=== PATIENT | male | born 1975 | race Caucasian/White ===

== ENCOUNTER 2017-09-04 18:06 | Inpatient (IN) | payer SELFPAY ==
[2017-09-04] VITALS (8 sets, daily range): BP systolic 139–171; BP diastolic 91–108; PULSE 74–140; RESP 16–20; TEMP 36.7–37.2; O2SAT 16–99; BMI 28.2; BMI 27.4
--- NOTE | 2017-09-04 18:27 | EKG12_ITS ---
Test Reason : CP Blood Pressure : / mmHG Vent. Rate : 105 BPM Atrial Rate : 105 BPM P-R Int : 120 ms QRS Dur : 082 ms QT Int : 314 ms P-R-T Axes : 066 036 040 degrees QTc Int : 415 ms Sinus tachycardia Otherwise normal ECG Confirmed by EMERITA NESS, LILIAN ([id number]), web content editor CINDY FERRIS ([id number]) on 09/06/2017 2:22:11 PM Referred By: KD Confirmed By:LILIAN FELDER MD
--- NOTE | 2017-09-04 18:30 | RAD_ITS ---
STUDY: X-RAY CHEST REASON FOR EXAM: Male, 41 years old. Chest pain. TECHNIQUE: Single AP portable upright view of the chest. COMPARISON: Portable AP erect chest x-ray January 11, 2013. FINDINGS: The endotracheal nasogastric tube seen on prior study have since been removed. Curvilinear density in the right base consistent with minor subsegmental atelectasis or scarring. The lungs are otherwise clear and expanded. There is no demonstrated pleural abnormality. Normal size heart. Normal mediastinum and brigido. Normal visualized pulmonary arteries. Normal visualized aortic arch and descending thoracic aorta. Normal visualized thoracic spine. Normal visualized ribs, clavicles, and shoulders. There is no demonstrated abnormality of the visualized soft tissue structures of the upper abdomen. RAD/Chest 1 View (Portable) IMPRESSION: Minor curvilinear scarring in the right base. No acute cardiopulmonary disease. Electronically Signed: Dimitry Moore MD at 18:56 EST , Service support ,
--- NOTE | 2017-09-04 18:31 | ED.DCSUM_ITS ---
- ER Visit Summary Date of Service: 09/04/17 Chief Complaint: Chest pain History of Present Illness: The patient is a 41 M presenting with chest pain which started at 3 PM. Patient states this started while having sexual intercourse. He complains of midsternal chest pain radiating to his left arm. It is associated with shortness of breath, diaphoresis, lightheadedness. He states the pain persisted over the next several hours. He has a family history of early heart disease and smoking. He denies PE/DVT risk factors. Physical Examination: Vitals are stable. Patient is afebrile. Alert no acute distress. HEENT exam is unremarkable. Neck is supple. Lungs are clear and equal bilaterally. Heart is regular and tachycardic Abdomen is soft nontender nondistended. Extremities are unremarkable. Skin is warm and dry. No focal neurologic deficit. Remainder of exam is unremarkable. Emergency Department Course and Treatment: He was given aspirin on arrival. EKG is sinus tachycardia rate of 105. Chest x-ray shows no acute process. CBC chemistries unremarkable. Troponin is elevated at 1.74. Pain-free on reevaluation. Discussed with Dr. Ricketts. He is given Lovenox and Plavix. Discussed with the hospitalist for admission. Disposition: Admission Impression: NSTEMI This note was generated with [employer] dictation software. It may contain incorrect words, spelling, and punctuation that were not noted in review of the chart prior to signing ED Disposition - Plan for ED Patient: Chief Complaint: Chest Pain
[2017-09-04 18:36] LABS: Absolute Lymphocyte Count 3.14 X10^3/ul (0.83-4.51); Basophil# 0.01 X10^3/uL; Basophil% 0.1 % (0-1); Eosinophil# 0.01 X10^3/uL; Eosinophils% 0.1 % (0-5); Hematocrit 46.8 % (40-54); Hemoglobin 15.9 g/dl (13.0-16.5); Lymphocyte # 3.14 X10^3/ul (4.0); Lymphocyte % 31.9 % (19-41); Mean Corpuscular Hgb 29.1 pg (27.0-32.0); Mean Corpuscular Volume 85.7 fL (80-94); Monocyte# 0.63 X10^3/uL; Monocyte% 6.4 % (0-10); Neutrophil # 6.02 X10^3/uL (2.7-7.7); Neutrophil % 61.2 % (47-70); Platelet Count 232 K/mm3 (150-450); RBC Distribution Width CV 13.9 % (11.6-14.6); Red Blood Count 5.46 M/mm3 (4.6-6.2); White Blood Count 9.8 K/mm3 (4.4-11.0)
[2017-09-04 18:39] LABS: POSITIVE COUNT NO; POSITIVE DIFFERENTIAL NO; POSITIVE MORPHOLOGY NO
[2017-09-04] MEDS: Aspirin 81 MG TAB.CHEW 324 MG PO (18:39)
[2017-09-04 18:53] LABS: Anion Gap 8 (5-15); BUN 10 mg/dL (7-18); BUN/Creat Ratio 9.2 RATIO (10-20); Calcium,Total 10.3 mg/dL (8.5-10.1); Chloride 100 mmol/L (98-107); Creatinine, Serum 1.09 mg/dL (0.70-1.30); EST Glomerular Filtration Rate 79 mL/min (>60); Est Glom Filt Rate - Afr Amer 96 mL/min (>60); Estimated Creatinine Clearance 87.16 ml/min; Glucose 91 mg/dL (74-106); Potassium 3.9 mmol/L (3.5-5.1); Sodium Level 137 mmol/L (136-145)
--- NOTE | 2017-09-04 19:23 | PCM.HP.STD ---
Problem List (1) Non-ST elevation MO (NSTEMI) Status: Acute (2) Hypotension Status: Chronic History of Present Illness Date of Admission: 09/04/17 Chief Complaint: chest pain The patient is a 41 year old M presents w chest pain. Post-coital where chest pain was left sided and radiated down left arm. He felt it was reflux and took some Tums w/o relief. [place] very tired as well. Never had pain like this before. Pain was pressure-like. Came to ER and was found to have a NSTEMI w troponins 1.74. Cardiology contacted and told to give patient ASA, plavix load and lovenox. Currently, pt is CP free. Pt does smoke anywhere from 2-10 cigs per day. Supposedly, he was advised to so by his physician for hypotension and dizziness as other medications did not help. Pt is hypertensive in ED w SBP in 150s and 160s. [] Past Medical History Past Medical History (Chronic Problems): Chronic Problems Hypotension (Chronic) Allergies No Known Allergies Allergy (Verified 09/04/17 18:08) Surgical History: noncontributory Smoking Status: Current every day smoker - *Family History Maternal History Items: Heart Disease Paternal History Items: Heart Disease Review of Systems Constitutional: Denies: Chills, Fever, Weight Change Eyes: Denies: Blurred vision, Double vision HEENT: Denies: Head Aches, Sinus Congestion, Sinus Drainage Cardiovascular: Reports: Chest Pain. Denies: Palpitations Respiratory: Denies: Cough, Shortness of breath at rest, Sputum production Gastrointestinal: Denies: Abdominal Pain, Nausea, Vomiting Genitourinary: Denies: Dysuria Musculoskeletal: Reports: Arm Pain. Denies: Joint Pain, Joint Tenderness Skin: Denies: Rash, Wounds Neurological: Denies: Numbness, Tingling, Focal weakness Psychiatric: Denies: Anxiety, Depression, Homicidal Ideations, Suicidal Ideations Hematologic/ Lymphatic: Denies: Easy Bruising, Easy Bleeding, Hx of blood clot VTE Information - Inpt Only VTE Present on Admission: No Patient Problems: Active and Suspected Problems Non-ST elevation MO (NSTEMI) (Acute) - Physical Exam General: Alert, Cooperative, No apparent distress HEENT: Atraumatic, Normocephalic Neck: No Nodes, Thyroid Normal Size and Texture Lungs: Clear to auscultation, Normal air movement, No rhonchi, No wheeze Cardiovascular: Regular rate, Regular Rhythm, Normal S1, Normal S2, No murmurs Abdomen: Bowel Sounds Present, Soft, Non Tender, Non-Distended, No Hepato-splenomegaly Extremities: No edema, Capillary Refill Less than 3 Seconds, No Calf Tenderness Skin: No rashes, No breakdown Musculoskeletal: No Tenderness to Palpation of Joints or Extremities Lymphatic: No Cervical, Supraclavicular, or Inguinal Adenopathy Neurological: Deep Tendon Reflexes 2+/4 and Symmetrical, Neuro grossly intact Psych/Mental Status: Normal Affect, Appropriate Vital Signs Temp Pulse Resp BP Pulse Ox 36.9 C 106 H 16 165/98 H 99 09/04/17 18:07 09/04/17 18:07 09/04/17 18:07 09/04/17 18:07 09/04/17 18:07 Oxygen Flow Rate 2 Oxygen Delivery Method Nasal Cannula Weight: 84.2 kg Body Mass Index (BMI) 28.2 Laboratory Tests Past 24 Hrs 09/04/17 09/04/17 18:10 18:10 WBC 9.8 RBC 5.46 Hgb 15.9 Hct 46.8 MCV 85.7 MCH 29.1 MCHC 34.0 RDW 13.9 RDW Differential 43.0 Plt Count 232 MPV 9.0 Immature Gran % (Auto) 0.300 Neut % (Auto) 61.2 Lymph % (Auto) 31.9 [place] % (Auto) 6.4 Eos % (Auto) 0.1 Baso % (Auto) 0.1 Absolute Neuts (auto) 6.0 Absolute Lymphs (auto) 3.14 Total Counted Not Reportable Sodium 137 Potassium 3.9 Chloride 100 Carbon Dioxide 29.0 Anion Gap 8 BUN 10 Creatinine 1.09 Estim Creat Clear Calc 87.16 Est GFR (MDRD) Af Amer 96 Est GFR (MDRD) Non-Af 79 BUN/Creatinine Ratio 9.2 L Glucose 91 Calcium 10.3 H Troponin I 1.74 H* Assessment/Plan Active and Suspected Problems Non-ST elevation MO (NSTEMI) (Acute) 1. NSTEMI smoking + family history advised to quit smoking ASA, plavix, lovenox Cards cs. Anticipated LHC 09/05/17 2. hypotension, chronic hypertensive here will require further w/u as outpt 3. DVT proph: pt anticoagulated. Code Visit Inpatient E&M: 32683 Init Hosp L3
[2017-09-04] MEDS: Enoxaparin 100 MG/ML Syringe 80 MG SC (19:26)
[2017-09-04] MEDS: Clopidogrel Bisulfate 300 MG Tablet PO (19:26)
--- NOTE | 2017-09-04 19:33 | HP.PCM_ITS ---
Problem List (1) Non-ST elevation NC (NSTEMI) Status: Acute (2) Hypotension Status: Chronic History of Present Illness Date of Admission: 09/04/17 Chief Complaint: chest pain The patient is a 41 year old M presents w chest pain. Post-coital where chest pain was left sided and radiated down left arm. He felt it was reflux and took some Tums w/o relief. [place] very tired as well. Never had pain like this before. Pain was pressure-like. Came to ER and was found to have a NSTEMI w troponins 1.74. Cardiology contacted and told to give patient ASA, plavix load and lovenox. Currently, pt is CP free. Pt does smoke anywhere from 2-10 cigs per day. Supposedly, he was advised to so by his physician for hypotension and dizziness as other medications did not help. Pt is hypertensive in ED w SBP in 150s and 160s. [] Past Medical History Past Medical History (Chronic Problems): Chronic Problems Hypotension (Chronic) Allergies No Known Allergies Allergy (Verified 09/04/17 18:08) Surgical History: noncontributory Smoking Status: Current every day smoker - *Family History Maternal History Items: Heart Disease Paternal History Items: Heart Disease Review of Systems Constitutional: Denies: Chills, Fever, Weight Change Eyes: Denies: Blurred vision, Double vision HEENT: Denies: Head Aches, Sinus Congestion, Sinus Drainage Cardiovascular: Reports: Chest Pain. Denies: Palpitations Respiratory: Denies: Cough, Shortness of breath at rest, Sputum production Gastrointestinal: Denies: Abdominal Pain, Nausea, Vomiting Genitourinary: Denies: Dysuria Musculoskeletal: Reports: Arm Pain. Denies: Joint Pain, Joint Tenderness Skin: Denies: Rash, Wounds Neurological: Denies: Numbness, Tingling, Focal weakness Psychiatric: Denies: Anxiety, Depression, Homicidal Ideations, Suicidal Ideations Hematologic/ Lymphatic: Denies: Easy Bruising, Easy Bleeding, Hx of blood clot VTE Information - Inpt Only VTE Present on Admission: No Patient Problems: Active and Suspected Problems Non-ST elevation NC (NSTEMI) (Acute) - Physical Exam General: Alert, Cooperative, No apparent distress HEENT: Atraumatic, Normocephalic Neck: No Nodes, Thyroid Normal Size and Texture Lungs: Clear to auscultation, Normal air movement, No rhonchi, No wheeze Cardiovascular: Regular rate, Regular Rhythm, Normal S1, Normal S2, No murmurs Abdomen: Bowel Sounds Present, Soft, Non Tender, Non-Distended, No Hepato- splenomegaly Extremities: No edema, Capillary Refill Less than 3 Seconds, No Calf Tenderness Skin: No rashes, No breakdown Musculoskeletal: No Tenderness to Palpation of Joints or Extremities Lymphatic: No Cervical, Supraclavicular, or Inguinal Adenopathy Neurological: Deep Tendon Reflexes 2+/4 and Symmetrical, Neuro grossly intact Psych/Mental Status: Normal Affect, Appropriate Vital Signs Temp Pulse Resp BP Pulse Ox 36.9 C 106 H 16 165/98 H 99 09/04/17 18:07 09/04/17 18:07 09/04/17 18:07 09/04/17 18:07 09/04/17 18:07 Oxygen Flow Rate 2 Oxygen Delivery Method Nasal Cannula Weight: 84.2 kg Body Mass Index (BMI) 28.2 Laboratory Tests Past 24 Hrs 09/04/17 09/04/17 18:10 18:10 WBC 9.8 RBC 5.46 Hgb 15.9 Hct 46.8 MCV 85.7 MCH 29.1 MCHC 34.0 RDW 13.9 RDW Differential 43.0 Plt Count 232 MPV 9.0 Immature Gran % (Auto) 0.300 Neut % (Auto) 61.2 Lymph % (Auto) 31.9 [place] % (Auto) 6.4 Eos % (Auto) 0.1 Baso % (Auto) 0.1 Absolute Neuts (auto) 6.0 Absolute Lymphs (auto) 3.14 Total Counted Not Reportable Sodium 137 Potassium 3.9 Chloride 100 Carbon Dioxide 29.0 Anion Gap 8 BUN 10 Creatinine 1.09 Estim Creat Clear Calc 87.16 Est GFR (MDRD) Af Amer 96 Est GFR (MDRD) Non-Af 79 BUN/Creatinine Ratio 9.2 L Glucose 91 Calcium 10.3 H Troponin I 1.74 H* Assessment/Plan Active and Suspected Problems Non-ST elevation NC (NSTEMI) (Acute) 1. NSTEMI * smoking + family history * advised to quit smoking * ASA, plavix, lovenox * Cards cs. Anticipated LHC 09/05/17 2. hypotension, chronic * hypertensive here * will require further w/u as outpt 3. DVT proph: pt anticoagulated. Code Visit Inpatient E&M: 61821 Init Hosp L3
--- NOTE | 2017-09-04 20:34 | PCM.CONS.C ---
Reason for Consult Date of Consultation: 09/04/17 Reason for Consultation: Chest pain and abnormal cardiac enzymes History of Present Illness: The patient is a 41 year old M with no previous medical history who presented to the emergency room today after he started experiencing chest discomfort post coitus. Not taken any phosphodiesterase inhibitors. He says that this was a burning sensation associated with diaphoresis and a warmth sensation. Took some Tums with no improvement and he was uncomfortable enough he decided to come to the emergency room and he spoke to the emergency room nurses and decided that he was not going to stay so he went back home. He talked to a friend who was a cardiac nurse who advised him to come back to the emergency room. On arrival back in the emergency room he had an EKG done as well as cardiac enzymes performed and they were noted to be abnormal. Cardiology was called for further evaluation and management. He says that he has not had this extent of discomfort before with activity in the last week he has also been fine. He does have a significant family history of coronary disease with both parents developing heart problems before age 55. [] Past Medical History Allergies/Adverse Reactions: Allergies No Known Allergies Allergy (Verified 09/04/17 18:08) Past Medical History (Chronic Problems): Chronic Problems Hypotension (Chronic) Surgical History: noncontributory - *Family History Maternal History Items: Heart Disease Paternal History Items: Heart Disease Smoking Status: Current every day smoker Alcohol: None Drugs: None Review of Systems - Review of Systems General: Denies: Fever, Night Sweats, Fatigue Cardiovascular: Reports: Chest Discomfort, Chest Discomfort at Rest, Chest Tightness, Shortness of Breath. Denies: Orthopnea, PND, Peripheral Edema, Palpitations, Lightheadedness, Dizziness, Near Syncope, Syncope Respiratory: Denies: Cough, Sputum Production, Hemoptysis Gastrointestinal: Reports: Indigestion. Denies: Hematemesis, Hematochezia, Melena Genitourinary: Denies: Dysuria, Hematuria Skin: Denies: Rash Neurological: Denies: Dizziness Endocrine: Reports: Excessive Sweating Subjectve: Pleasant young gentleman in no apparent distress Objective: Vital Signs Temp Pulse Resp BP Pulse Ox 98.1 F 91 18 159/106 H 16 09/04/17 20:08 09/04/17 20:08 09/04/17 20:08 09/04/17 20:08 09/04/17 20:08 Oxygen Flow Rate 2 Oxygen Delivery Method Room Air Weight: 181 lb Body Mass Index (BMI) 27.4 General: Awake, Alert, Oriented x 3 HEENT: PERRL, EOMI, Sclera Non Icteric Neck: Supple, Good ROM, No Lymph Node Enlargement Lungs: Clear to auscultation Cardiovascular: Regular Rhythm, Normal S1, Normal S2, No Murmurs, No Rubs, No Gallops Vascular: No Carotid Bruits, Normal Femoral Pulses, Normal Radial Pulses, Normal Dorsalis Pedal Pulse, Normal Posterior Tibial Pulses Abdomen: Bowel Sounds Present, Soft, Non Tender, No HSM, No Organomegaly Extremities: No Cyanosis, No Clubbing, No edema Neurological: No Focal Motor or Sensory Deficit Rhythm: EKG: Sinus tachycardia Assessment/Plan 1. Non-ST elevation myocardial infarction Patient presents with chest discomfort which is suggestive and has abnormal cardiac enzymes with no EKG changes. The above is secondary to plaque rupture. He is currently pain-free and I would recommend at this particular time that we pursue an early invasive strategy with aspirin, clopidogrel, beta-evelina, high intensity statin and a lipid profile in the morning and a cardiac catheterization. The risk benefits and alternatives have been explained to him. Went to him and his significant other the various modalities approaches and consequences. He agrees to proceed. Depending on the findings further recommendations will be made. Thank you for allowing me to participate in the care of your patient. Please don't hesitate to call if any issues arise
[2017-09-04] MEDS: Atorvastatin Calcium 80 MG Tablet PO (21:34)
[2017-09-04] MEDS: Metoprolol Tartrate 25 MG Tablet PO (21:34)
[2017-09-04] MEDS: 0.9% Normal Saline 1,000 ML 60 ML IV (21:57)
[2017-09-04] MEDS: 0.9% NaCl Peripheral Flush Adult/Peds IV (22:03)
[2017-09-05] VITALS (34 sets, daily range): BP systolic 90–135; BP diastolic 39–83; PULSE 66–94; RESP 11–23; TEMP 36.4–37.3; O2SAT 95–100; BMI 27.5
--- NOTE | 2017-09-05 05:55 | EKG12_ITS ---
Test Reason : AM EKG Blood Pressure : / mmHG Vent. Rate : 072 BPM Atrial Rate : 072 BPM P-R Int : 114 ms QRS Dur : 086 ms QT Int : 396 ms P-R-T Axes : 048 044 029 degrees QTc Int : 433 ms Normal sinus rhythm Normal ECG Confirmed by EMERITA NESS, LILIAN ([id number]), slot editor CINDY FERRIS ([id number]) on 09/09/2017 1:56:49 PM Referred By: DONY Confirmed By:LILIAN FELDER MD
[2017-09-05 06:17] LABS: Absolute Lymphocyte Count 3.82 X10^3/ul (0.83-4.51); Absolute Neutrophil Count 3.8 X10^3/uL (2.0-7.7); Basophil# 0.03 X10^3/uL; Basophil% 0.4 % (0-1); Eosinophil# 0.03 X10^3/uL; Eosinophils% 0.4 % (0-5); Hematocrit 45.4 % (40-54); Hemoglobin 15.7 g/dl (13.0-16.5); Lymphocyte # 3.82 X10^3/ul (4.0); Lymphocyte % 45.4 % (19-41); Mean Corp Hgb Conc 34.6 g/gl (32-36); Mean Corpuscular Hgb 29.5 pg (27.0-32.0); Mean Corpuscular Volume 85.2 fL (80-94); Mean Platelet Vol. 9.1 fl (6.2-12.0); Monocyte# 0.69 X10^3/uL; Monocyte% 8.2 % (0-10); Neutrophil # 3.82 X10^3/uL (2.7-7.7); Neutrophil % 45.2 % (47-70); Platelet Count 240 K/mm3 (150-450); RBC Distribution Width CV 14.3 % (11.6-14.6); RBC Distribution Width SD 43.8 fl (35.1-43.9); Red Blood Count 5.33 M/mm3 (4.6-6.2); White Blood Count 8.4 K/mm3 (4.4-11.0)
[2017-09-05 06:18] LABS: POSITIVE COUNT NO; POSITIVE DIFFERENTIAL NO; POSITIVE MORPHOLOGY NO
[2017-09-05 06:24] LABS: Prothrombin Time (Protime)PT. 12.8 SECONDS (11.7-14.9)
[2017-09-05 06:25] LABS: Partial Thromboplast Time 42.6 Seconds (24.1-36.2)
[2017-09-05 06:27] LABS: Anion Gap 7 (5-15); BUN 12 mg/dL (7-18); BUN/Creat Ratio 11.4 RATIO (10-20); Chloride 104 mmol/L (98-107); Cholesterol 218 mg/dL (200); Creatinine, Serum 1.05 mg/dL (0.70-1.30); EST Glomerular Filtration Rate 83 mL/min (>60); Est Glom Filt Rate - Afr Amer 100 mL/min (>60); Estimated Creatinine Clearance 90.48 ml/min; Glucose 99 mg/dL (74-106); High Density Lipoprotein 29 mg/dL; Potassium 3.9 mmol/L (3.5-5.1); Sodium Level 138 mmol/L (136-145); Triglycerides 347 mg/dL; Very Low Density Lipoprotein 69 mg/dL (5-40)
[2017-09-05] MEDS: Aspirin E.C. 81 MG Tablet PO (06:41)
[2017-09-05] MEDS: Metoprolol Tartrate 25 MG Tablet PO ×2 (06:41→21:08)
[2017-09-05] MEDS: Clopidogrel Bisulfate 75 MG Tablet PO (06:41)
--- NOTE | 2017-09-05 08:02 | PCM.PN.CARD ---
Subjectve: Seen and evaluated and appears to be well underwent cath this morning Objective: Vital Signs Temp Pulse Resp BP Pulse Ox 98.8 F 85 18 117/69 98 09/05/17 06:39 09/05/17 07:09 09/05/17 06:39 09/05/17 06:39 09/05/17 06:39 Oxygen Flow Rate 2 Oxygen Delivery Method Nasal Cannula Weight: 181 lb Body Mass Index (BMI) 27.4 Intake and Output for Last 24 Hours 09/03/17 09/04/17 09/05/17 23:59 23:59 23:59 Intake Total 363 / 363 323 / 323 Balance 363 / 363 323 / 323 General: Awake, Alert, Oriented x 3 HEENT: PERRL, EOMI, Sclera Non Icteric Neck: Supple, Good ROM, No Lymph Node Enlargement Lungs: Clear to auscultation Cardiovascular: Regular Rhythm, Normal S1, Normal S2, No Murmurs, No Rubs, No Gallops Vascular: No Carotid Bruits, Normal Femoral Pulses, Normal Radial Pulses, Normal Dorsalis Pedal Pulse, Normal Posterior Tibial Pulses Abdomen: Bowel Sounds Present, Soft, Non Tender, No HSM, No Organomegaly Extremities: No Cyanosis, No Clubbing, No edema Neurological: No Focal Motor or Sensory Deficit 09/04/17 21:30: Troponin I 3.53 H* 09/05/17 00:02: Troponin I 3.09 H* 09/05/17 05:55: Sodium 138, Potassium 3.9, Chloride 104, Carbon Dioxide 27.0, Anion Gap 7, BUN 12, Creatinine 1.05, Est GFR (MDRD) Af Amer 100, Est GFR (MDRD) Non-Af 83, BUN/Creatinine Ratio 11.4, Glucose 99, Calcium 9.0, Triglycerides 347 H, Cholesterol 218 H, LDL Cholesterol 120, VLDL Cholesterol 69 H, HDL Cholesterol 29 L 09/05/17 05:55: WBC 8.4, RBC 5.33, Hgb 15.7, Hct 45.4, MCV 85.2, MCH 29.5, MCHC 34.6, RDW 14.3, RDW Differential 43.8, Plt Count 240, MPV 9.1, Immature Gran % (Auto) 0.400, Neut % (Auto) 45.2 L, Lymph % (Auto) 45.4 H, [place] % (Auto) 8.2, Eos % (Auto) 0.4, Baso % (Auto) 0.4, Absolute Neuts (auto) 3.8, Total Counted Not Reportable 09/05/17 05:55: PT 12.8, INR 1.0, APTT 42.6 H Rhythm: EKG: ECHO: Stress Test: Cardiac Cath: PCI: CT Surgery: Holter monitor: EPS: PPM: CXR: Chest CT Scan: Assessment/Plan 1. Non-ST elevation myocardial infarction Patient presents with chest discomfort which is suggestive and has abnormal cardiac enzymes with no EKG changes. The catheterization demonstrated the following: Left main coronary artery-normal Anterior descending artery with mild disease Diagonal vessel with 60% proximal stenosis Circumflex artery with 80% distal stenosis Nondominant right coronary artery with no significant stenosis Preserved left ventricular ejection fraction On the above I would recommend angioplasty to the circumflex artery. 2. Dyslipidemia with low HDL Would need high intensity statin. Depending on the findings further recommendations will be made. Thank you for allowing me to participate in the care of your patient. Please don't hesitate to call if any issues arise
--- NOTE | 2017-09-05 08:06 | PN.CARD_ITS ---
Subjectve: Seen and evaluated and appears to be well underwent cath this morning Objective: Vital Signs Temp Pulse Resp BP Pulse Ox 98.8 F 85 18 117/69 98 09/05/17 06:39 09/05/17 07:09 09/05/17 06:39 09/05/17 06:39 09/05/17 06:39 Oxygen Flow Rate 2 Oxygen Delivery Method Nasal Cannula Weight: 181 lb Body Mass Index (BMI) 27.4 Intake and Output for Last 24 Hours 09/03/17 09/04/17 09/05/17 23:59 23:59 23:59 Intake Total 363 / 363 323 / 323 Balance 363 / 363 323 / 323 General: Awake, Alert, Oriented x 3 HEENT: PERRL, EOMI, Sclera Non Icteric Neck: Supple, Good ROM, No Lymph Node Enlargement Lungs: Clear to auscultation Cardiovascular: Regular Rhythm, Normal S1, Normal S2, No Murmurs, No Rubs, No Gallops Vascular: No Carotid Bruits, Normal Femoral Pulses, Normal Radial Pulses, Normal Dorsalis Pedal Pulse, Normal Posterior Tibial Pulses Abdomen: Bowel Sounds Present, Soft, Non Tender, No HSM, No Organomegaly Extremities: No Cyanosis, No Clubbing, No edema Neurological: No Focal Motor or Sensory Deficit 09/04/17 21:30: Troponin I 3.53 H* 09/05/17 00:02: Troponin I 3.09 H* 09/05/17 05:55: Sodium 138, Potassium 3.9, Chloride 104, Carbon Dioxide 27.0, Anion Gap 7, BUN 12, Creatinine 1.05, Est GFR (MDRD) Af Amer 100, Est GFR (MDRD ) Non-Af 83, BUN/Creatinine Ratio 11.4, Glucose 99, Calcium 9.0, Triglycerides 347 H, Cholesterol 218 H, LDL Cholesterol 120, VLDL Cholesterol 69 H, HDL Cholesterol 29 L 09/05/17 05:55: WBC 8.4, RBC 5.33, Hgb 15.7, Hct 45.4, MCV 85.2, MCH 29.5, MCHC 34.6, RDW 14.3, RDW Differential 43.8, Plt Count 240, MPV 9.1, Immature Gran % ( Auto) 0.400, Neut % (Auto) 45.2 L, Lymph % (Auto) 45.4 H, [place] % (Auto) 8.2, Eos % (Auto) 0.4, Baso % (Auto) 0.4, Absolute Neuts (auto) 3.8, Total Counted Not Reportable 09/05/17 05:55: PT 12.8, INR 1.0, APTT 42.6 H Rhythm: EKG: ECHO: Stress Test: Cardiac Cath: PCI: CT Surgery: Holter monitor: EPS: PPM: CXR: Chest CT Scan: Assessment/Plan 1. Non-ST elevation myocardial infarction Patient presents with chest discomfort which is suggestive and has abnormal cardiac enzymes with no EKG changes. The catheterization demonstrated the following: Left main coronary artery-normal Anterior descending artery with mild disease Diagonal vessel with 60% proximal stenosis Circumflex artery with 80% distal stenosis Nondominant right coronary artery with no significant stenosis Preserved left ventricular ejection fraction On the above I would recommend angioplasty to the circumflex artery. 2. Dyslipidemia with low HDL Would need high intensity statin. Depending on the findings further recommendations will be made. Thank you for allowing me to participate in the care of your patient. Please don't hesitate to call if any issues arise
--- NOTE | 2017-09-05 08:18 | CL.D_ITS ---
Patient Name: MONICA NIETO Study Date: 09/05/2017 Performing: Elvis Ricketts MD Ht: 68.11 inches 173 cm : 1975 Wt: 180.78 lbs 82 kg Age: 41 Gender: male BSA: 1.96 PROCEDURE(S) PERFORMED [id number]/LV CLINICAL PROFILE AND INDICATIONS INDICATIONS: 41year-old man with a history of non-ST elevation myocardial infarction Stress/Imaging Stress/Image Study Performed: No CONCLUSIONS Severe Disease involving a dominant circumflex artery and moderate disease of the first diagonal vess el. RECOMMENDATIONS Referred for immediate PCI DESCRIPTION OF PROCEDURE The patient arrived to the procedure lab. The risks and benefits of the procedure as well as a full d escription of our services here and current unavailability of surgical backup were fully explained to the patient and/or their significant other prior to the catheterization. The Timeout was completed, verifying the correct patient and procedure. The patient's procedural site was prepped and draped in the usual fashion. Local anesthetic was given subcutaneously to right groin region with Lidocaine 2%. Using a modified Seldinger technique, arterial access was obtained via the right femoral artery, a 5 Fr sheath was inserted. Left Coronary Artery selective angiography was performed in multiple views u sing a 5 Fr. JL 5 catheter. Right Coronary Artery selective angiography was then performed in multipl e views using a 5 Fr. 3DRC (Erich) catheter. Left Ventriculography was performed in DAVILA projection using a 5 Fr. Pigtail catheter. LV to AO pullback pressures were then recorded. CORONARY ANGIOGRAPHY DOMINANCE: Left Dominant LEFT HEART ASSESSMENT Left Ventricular Ejection Fraction: by LV Gram 60 % Normal LV wall motion Normal Left Ventricular systolic function LEFT MAIN: Angiographically normal LEFT ANTERIOR DECENDING ARTERY: Mild luminal irregularities DIAGONAL 1: Proximal - smooth 60 % Stenosis CIRCUMFLEX ARTERY: DISTAL CIRC: Mild luminal irregularities less than 30%, 80 % Stenosis RIGHT CORONARY ARTERY: Angiographically normal COMPLICATIONS PROCEDURE MEDICATIONS Versed 1 mg IV Versed 1 mg IV Oxygen: 2 L/min via nasal cannula Heparin 6000 unit(s) IV 09/05/2017 08:04:43 Nitro 200 mcg IC 09/05/2017 08:06:43 Nitro 200 mcg IC 09/05/2017 08:06:43 IV Bolus: .9 NaCl ml total 09/05/2017 08:06:35 SUMMARY OF HEMODYNAMIC DATA Time AIR REST ECG 07:23:38 AO 103/69 (86) SA 07:48:20 LV 92/5, 10 07:55:40 LV 91/4, 8 07:55:47 LV 110/-4, 13 07:58:21 LVp 114/-7, 13 07:58:26 AOp 104/59 (79) 07:58:31 Signed By Elvis Ricketts MD On 09/05/2017 08:17:55 Elvis Ricketts MD
--- NOTE | 2017-09-05 08:30 | CL.I_ITS ---
Patient Name: MONICA NIETO Study Date: 09/05/2017 Performing: Sebastien Vanessa MD Ht: 68.11 inches 173 cm : 1975 Wt: 180.78 lbs 82 kg Age: 41 Gender: male BSA: 1.96 PROCEDURE(S) PERFORMED [id number] W OR WO PTCA, SINGLE CORONARY ARTERY CLINICAL PROFILE AND CO-MORBIDITIES INDICATIONS: 41year-old man with a history of non-ST elevation myocardial infarction Stress/Imaging Stress/Image Study Performed: No CONCLUSIONS Successful PTCA/SHERIF of the of distal LCX with a 2.5 x 16 Promus Synergy; 75%-->0%, no dissection. RECOMMENDATIONS Highly recommend quitting all tobacco products Follow up with primary television station manager Risk factor modification ASA Indefinitley Plavix for at least 12 months Routine post interventional care Refer for Outpatient Cardiac Rehab Manual sheath removal per protocol Follow up with Dr. Ricketts DESCRIPTION OF PROCEDURE The patient arrived to the procedure lab. The risks and benefits of the procedure as well as a full d escription of our services here and current unavailability of surgical backup were fully explained to the patient and/or their significant other prior to the catheterization. The Timeout was completed, verifying the correct patient and procedure. The patient's procedural site was prepped and draped in the usual fashion. Local anesthetic was given subcutaneously to right groin region with Lidocaine 2% Using a modified Seldinger technique,arterial access was obtained via the right femoral artery, a 5Fr sheath was inserted. Left Coronary Artery selective angiography was performed in multiple views usin g a 5 Fr. JL 5 catheter. Right Coronary Artery selective angiography was then performed in multiple v iews using a 5 Fr. 3DRC (Erich) catheter. Left Ventriculography was performed in DAVILA projection us ing a 5 Fr. Pigtail catheter. LV to AO pullback pressures were then recorded.The images were reviewed and options discussed. A decision was then made to proceed with an Intervention, IVUS or other adjun ct procedure. Arterial sheath was exchanged for a 6 Fr Sheath ebu 3.5 Guide catheter was inserted and engaged into the LCA. bmw Guide wire was advanced to the Circumflex. Angiogram performed pre balloon dilatation. e merge 2.0x12 Balloon catheter was inserted. PTCA balloon inflated at 8 atms for 10 secs PTCA balloon inflated at 10 atms for 9 secs Angiogram performed post balloon dilatation. synergy 2.5x16 Drug Eluti ng stent was inserted Angiogram performed post stent deployment.. . The arterial sheath was sutured in place and capped. INTERVENTION INFORMATION LESION SITE: Circumflex (Distal) Lesion Complexity: Non-High/Non-C, lesion at bifurcation: No, thrombus present: No, lesion length: 16 mm, culprit lesion: Yes Pre Stenosis: 75 % Pre intervention PARAM flow: 3 PROCEDURE: Drug Eluting Stent with pre dilatation. Post Stenosis: 0 % Post intervention PARAM flow: 3 Lesion Devices: Rider .014 BMW [place] Straight 190cm [employer] [place] 12 Pressure Tubing PhotoSolartronic 6 Fr EBU3.5 100cm Guide Catheter Jacobo Sci EMERGE MR 2.00x12 BALLOON Jacobo Sci Synergy MR SHERIF 2.50x16 COMPLICATIONS No Complications PROCEDURE MEDICATIONS Versed 1 mg IV Versed 1 mg IV Oxygen: 2 L/min via nasal cannula Heparin 6000 unit(s) IV 09/05/2017 08:04:43 Nitro 200 mcg IC 09/05/2017 08:06:43 Nitro 200 mcg IC 09/05/2017 08:06:43 Nitro 200 mcg IC 09/05/2017 08:12:06 IV Bolus: .9 NaCl 400ml total 09/05/2017 08:06:35 SUMMARY OF HEMODYNAMIC DATA Time AIR REST ECG 07:23:38 AO 103/69 (86) SA 07:48:20 LV 92/5, 10 07:55:40 LV 91/4, 8 07:55:47 LV 110/-4, 13 07:58:21 LVp 114/-7, 13 07:58:26 AOp 104/59 (79) 07:58:31 Signed By Sebastien Vanessa MD On 09/05/2017 08:30:05 Sebastien Vanessa MD
--- NOTE | 2017-09-05 08:40 | NURSING ---
verbal report given to HAILEE harrell
[2017-09-05 08:41] LABS: ACT Activated Clotting Time 213 sec (74-137)
--- NOTE | 2017-09-05 08:47 | EKG12_ITS ---
Test Reason : Blood Pressure : / mmHG Vent. Rate : 069 BPM Atrial Rate : 069 BPM P-R Int : 124 ms QRS Dur : 088 ms QT Int : 404 ms P-R-T Axes : 063 043 026 degrees QTc Int : 432 ms Normal sinus rhythm Normal ECG Confirmed by EMERITA NESS, LILIAN ([id number]), production editor CINDY FERRIS ([id number] on 09/09/2017 2:11:34 PM Referred By: SHARONA Confirmed By:LILIAN FELDER MD
[2017-09-05] MEDS: 0.9% NaCl Peripheral Flush Adult/Peds IV ×3 (08:59→21:04)
[2017-09-05] MEDS: 0.9% Normal Saline 1,000 ML 150 ML IV (09:18)
[2017-09-05 09:24] LABS: Hematocrit 43.1 % (40-54); Hemoglobin 14.8 g/dl (13.0-16.5); Mean Corp Hgb Conc 34.3 g/gl (32-36); Mean Corpuscular Hgb 29.4 pg (27.0-32.0); Mean Corpuscular Volume 85.7 fL (80-94); Mean Platelet Vol. 9.5 fl (6.2-12.0); Platelet Count 237 K/mm3 (150-450); RBC Distribution Width CV 14.3 % (11.6-14.6); Red Blood Count 5.03 M/mm3 (4.6-6.2); White Blood Count 8.2 K/mm3 (4.4-11.0)
[2017-09-05 09:25] LABS: Scan Indicated on CBC? Y/N NO
[2017-09-05 09:35] LABS: CPK Total, Creatine Kinase 127 U/L (39-308)
[2017-09-05 10:24] LABS: M R Staph aureus DNA By PCR Negative (Negative); Probe Check PASS; Specimen Processing Control PASS
[2017-09-05 10:32] LABS: ACT Activated Clotting Time 136 sec (74-137)
--- NOTE | 2017-09-05 10:46 | CRPHASE1 ---
Patient Data/Charges Regional Production Manager:: Sebastien Vanessa Refer Phase II:: Yes Phase II Referral:: [facility] Start Phase II:: After follow up with Regional Production Manager Phase I Charge:: Level I - Education Risk Factors/Lifestyle Smoking Status: Current every day smoker Packs Smoked per Day: 0.5 Hx Hypertension: No Hx Diabetes Mellitus Type 1: No Hx Diabetes Mellitus Type 2: No Hx Metabolic Disorders: No Hx Dyslipidemia: Yes Hx Obesity: Yes Height: 1.73 m Weight:: 82.1 kg BMI: 27.5 Risk Factor for Sedentary Lifestyle: Moderate Risk - works out some Family History: Heart Disease - both sides of family Laboratory Values: Cardiac Rehab Phase I Labs Triglycerides 347 mg/dL (-199) H 09/05/17 05:55 Cholesterol 218 mg/dL (200) H 09/05/17 05:55 LDL Cholesterol 120 mg/dL (0-130) 09/05/17 05:55 HDL Cholesterol 29 mg/dL (40-) L 09/05/17 05:55 Phase I Education Given On:: [place], Nutrition, Antiplatelet medication, CHF, Smoking cessation Issues Affecting Care:: None Knowledge of Condition:: Yes Learning Preferences: Verbal, Written, Audio/Visual, Demonstration Hospital Course Presenting Symptoms:: Chest pain. Discharge/Home/Social Eval Marital Status: Single
--- NOTE | 2017-09-05 10:50 | CRPHASE1_ITS ---
Patient Data/Charges Computer Systems Technician:: Sebastien Vanessa Refer Phase II:: Yes Phase II Referral:: [facility] Start Phase II:: After follow up with Computer Systems Technician Phase I Charge:: Level I - Education Risk Factors/Lifestyle Smoking Status: Current every day smoker Packs Smoked per Day: 0.5 Hx Hypertension: No Hx Diabetes Mellitus Type 1: No Hx Diabetes Mellitus Type 2: No Hx Metabolic Disorders: No Hx Dyslipidemia: Yes Hx Obesity: Yes Height: 1.73 m Weight:: 82.1 kg BMI: 27.5 Risk Factor for Sedentary Lifestyle: Moderate Risk - works out some Family History: Heart Disease - both sides of family Laboratory Values: Cardiac Rehab Phase I Labs Triglycerides 347 mg/dL (-199) H 09/05/17 05:55 Cholesterol 218 mg/dL (200) H 09/05/17 05:55 LDL Cholesterol 120 mg/dL (0-130) 09/05/17 05:55 HDL Cholesterol 29 mg/dL (40-) L 09/05/17 05:55 Phase I Education Given On:: [place], Nutrition, Antiplatelet medication, CHF, Smoking cessation Issues Affecting Care:: None Knowledge of Condition:: Yes Learning Preferences: Verbal, Written, Audio/Visual, Demonstration Hospital Course Presenting Symptoms:: Chest pain. Discharge/Home/Social Eval Marital Status: Single
--- NOTE | 2017-09-05 10:50 | CRPH1.INSTRU ---
General Education CAD and cardiac anatomy and function:: Patient communicates acknowledgment, Family communicates acknowledgment, Needs reinforcement - Girlfriend and brother at bedside during visit. Explanation of diagnoses and procedures:: Patient communicates acknowledgment, Family communicates acknowledgment, Needs reinforcement Sign/Symptoms of [place]:: Patient communicates acknowledgment, Family communicates acknowledgment, Needs reinforcement Antiplatelet therapy: Patient communicates acknowledgment, Family communicates acknowledgment, Needs reinforcement Proper use of NTG-SL: Patient communicates acknowledgment, Family communicates acknowledgment, Needs reinforcement Emergency procedures and activation of EMS: Patient communicates acknowledgment, Family communicates acknowledgment, Needs reinforcement Compliance of all prescribed medications: Patient communicates acknowledgment, Family communicates acknowledgment, Needs reinforcement Smoking Patient Nicotine/Smoking Risk Factors Are:: Cigarettes Recommendations Include:: Smoking cessation strategies/Smoking packet, Second-hand smoke recommendation, Participation in a smoking cessation program Nicotine/Smoking Response Code:: Patient communicates acknowledgment, Family communicates acknowledgment, Needs reinforcement Dyslipidemia Patient Dyslipidemia Risk Factors Are:: Total Cholesterol, Triglycerides, HDL, LDL Recommendations Include:: Lipid profile provided, Reviewed NCEP/ATP guidelines, Therapeutic Lifestyle Change dietary guidelines Dyslipidemia Response Code:: Patient communicates acknowledgment, Family communicates acknowledgment, Needs reinforcement Overweight/Obesity Patient Overweight/Obesity Risk Factors Are:: Overweight = 26-29 Recommendations Include:: Weight loss of 5-10%, Reduced calorie diet, Exercise 5-7 times/week Overweight/Obesity:: Patient communicates acknowledgment, Family communicates acknowledgment, Needs reinforcement Hypertension Recommendations Include:: Maintain BP <130/85, DASH dietary guidelines, Decrease/maintain normal body weight, Moderation of ETOH Hypertension:: Patient communicates acknowledgment, Family communicates acknowledgment, Needs reinforcement - Had high BP this admission Heart Disease Patient Heart Disease Risk Factors Are:: Family history of heart disease < 65 years old Recommendations Include:: Educated family members of their risk, Educated family members of importance of prevention of heart disease Heart Disease Response Code:: Patient communicates acknowledgment, Family communicates acknowledgment, Needs reinforcement Diabetes Patient Diabetes Risk Factors Are:: No documented hx of diabetes Recommendations Include:: Maintain fasting blood sugars 70-110 md/dL, Decrease/maintain body weight Diabetes:: Patient communicates acknowledgment, Family communicates acknowledgment, Needs reinforcement Metabolic Syndrome Metabolic Syndrome Response Code:: Not instructed Sedentary Patient Sedentary Risk Factors Are:: Lack of regular exercise Recommendations Include:: Aerobic exercise 5-7 times/week for 20-30 minutes continuously, Benefits of regular exercise, Discussed home walking program, Monitored Outpatient Cardiac Rehab Sedentary Response Code:: Patient communicates acknowledgment, Family communicates acknowledgment, Needs reinforcement Stress Patient Stress Risk Factors Are:: Patient denies stress as a risk factor Recommendations Include:: Identification of stressors, and assessment of coping skills, Stress management techniques Stress Response Code:: Patient communicates acknowledgment, Family communicates acknowledgment, Patient returns demonstration, Family returns demonstration
--- NOTE | 2017-09-05 10:54 | CRPH1.INST_ITS ---
General Education CAD and cardiac anatomy and function:: Patient communicates acknowledgment, Family communicates acknowledgment, Needs reinforcement - Girlfriend and brother at bedside during visit. Explanation of diagnoses and procedures:: Patient communicates acknowledgment, Family communicates acknowledgment, Needs reinforcement Sign/Symptoms of [place]:: Patient communicates acknowledgment, Family communicates acknowledgment, Needs reinforcement Antiplatelet therapy: Patient communicates acknowledgment, Family communicates acknowledgment, Needs reinforcement Proper use of NTG-SL: Patient communicates acknowledgment, Family communicates acknowledgment, Needs reinforcement Emergency procedures and activation of EMS: Patient communicates acknowledgment , Family communicates acknowledgment, Needs reinforcement Compliance of all prescribed medications: Patient communicates acknowledgment, Family communicates acknowledgment, Needs reinforcement Smoking Patient Nicotine/Smoking Risk Factors Are:: Cigarettes Recommendations Include:: Smoking cessation strategies/Smoking packet, Second- hand smoke recommendation, Participation in a smoking cessation program Nicotine/Smoking Response Code:: Patient communicates acknowledgment, Family communicates acknowledgment, Needs reinforcement Dyslipidemia Patient Dyslipidemia Risk Factors Are:: Total Cholesterol, Triglycerides, HDL, LDL Recommendations Include:: Lipid profile provided, Reviewed NCEP/ATP guidelines, Therapeutic Lifestyle Change dietary guidelines Dyslipidemia Response Code:: Patient communicates acknowledgment, Family communicates acknowledgment, Needs reinforcement Overweight/Obesity Patient Overweight/Obesity Risk Factors Are:: Overweight = 26-29 Recommendations Include:: Weight loss of 5-10%, Reduced calorie diet, Exercise 5 -7 times/week Overweight/Obesity:: Patient communicates acknowledgment, Family communicates acknowledgment, Needs reinforcement Hypertension Recommendations Include:: Maintain BP <130/85, DASH dietary guidelines, Decrease /maintain normal body weight, Moderation of ETOH Hypertension:: Patient communicates acknowledgment, Family communicates acknowledgment, Needs reinforcement - Had high BP this admission Heart Disease Patient Heart Disease Risk Factors Are:: Family history of heart disease < 65 years old Recommendations Include:: Educated family members of their risk, Educated family members of importance of prevention of heart disease Heart Disease Response Code:: Patient communicates acknowledgment, Family communicates acknowledgment, Needs reinforcement Diabetes Patient Diabetes Risk Factors Are:: No documented hx of diabetes Recommendations Include:: Maintain fasting blood sugars 70-110 md/dL, Decrease/ maintain body weight Diabetes:: Patient communicates acknowledgment, Family communicates acknowledgment, Needs reinforcement Metabolic Syndrome Metabolic Syndrome Response Code:: Not instructed Sedentary Patient Sedentary Risk Factors Are:: Lack of regular exercise Recommendations Include:: Aerobic exercise 5-7 times/week for 20-30 minutes continuously, Benefits of regular exercise, Discussed home walking program, Monitored Outpatient Cardiac Rehab Sedentary Response Code:: Patient communicates acknowledgment, Family communicates acknowledgment, Needs reinforcement Stress Patient Stress Risk Factors Are:: Patient denies stress as a risk factor Recommendations Include:: Identification of stressors, and assessment of coping skills, Stress management techniques Stress Response Code:: Patient communicates acknowledgment, Family communicates acknowledgment, Patient returns demonstration, Family returns demonstration
--- NOTE | 2017-09-05 13:24 | PCM.PN.HOSP ---
Patient Problems: Active and Suspected Problems Non-ST elevation CA (NSTEMI) (Acute) Vitals/I&O's: Vital Signs Temp Pulse Resp BP Pulse Ox 98.8 F 75 22 H 113/63 98 09/05/17 12:00 09/05/17 13:00 09/05/17 13:00 09/05/17 13:00 09/05/17 13:00 Oxygen Flow Rate 2 Oxygen Delivery Method Room Air Weight: 82.1 kg Body Mass Index (BMI) 27.4 Intake and Output for Last 24 Hours 09/03/17 09/04/17 09/05/17 23:59 23:59 23:59 Intake Total 363 / 363 808 / 808 Balance 363 / 363 808 / 808 Laboratory Results 09/04/17 21:30: Troponin I 3.53 H* 09/05/17 00:02: Troponin I 3.09 H* 09/05/17 05:55: Sodium 138, Potassium 3.9, Chloride 104, Carbon Dioxide 27.0, Anion Gap 7, BUN 12, Creatinine 1.05, Estim Creat Clear Calc 90.48, Est GFR (MDRD) Af Amer 100, Est GFR (MDRD) Non-Af 83, BUN/Creatinine Ratio 11.4, Glucose 99, Calcium 9.0, Triglycerides 347 H, Cholesterol 218 H, LDL Cholesterol 120, VLDL Cholesterol 69 H, HDL Cholesterol 29 L 09/05/17 05:55: WBC 8.4, RBC 5.33, Hgb 15.7, Hct 45.4, MCV 85.2, MCH 29.5, MCHC 34.6, RDW 14.3, RDW Differential 43.8, Plt Count 240, MPV 9.1, Immature Gran % (Auto) 0.400, Neut % (Auto) 45.2 L, Lymph % (Auto) 45.4 H, [place] % (Auto) 8.2, Eos % (Auto) 0.4, Baso % (Auto) 0.4, Absolute Neuts (auto) 3.8, Absolute Lymphs (auto) 3.82, Total Counted Not Reportable 09/05/17 05:55: PT 12.8, INR 1.0, APTT 42.6 H 09/05/17 08:22: Activated Clotting Time 213 H 09/05/17 08:50: MRSA (PCR) Negative 09/05/17 08:55: Total Creatine Kinase 127 09/05/17 08:55: WBC 8.2, RBC 5.03, Hgb 14.8, Hct 43.1, MCV 85.7, MCH 29.4, MCHC 34.3, RDW 14.3, RDW Differential 44.0 H, Plt Count 237, MPV 9.5 09/05/17 10:21: Activated Clotting Time 136 Current Medications Acetaminophen (Tylenol) 650 mg PO Q6H PRN PRN PRN Reason: Mild Pain (1-3)/Temp > 100.7 F Aspirin (Ecotrin) 81 mg PO DAILY@0800 [facility] Last Admin: 09/05/17 06:41 Dose: 81 mg Atorvastatin Calcium (Lipitor) 80 mg PO QHS [facility] Last Admin: 09/04/17 21:34 Dose: 80 mg Atropine Sulfate () 0.5 mg IV UD PRN PRN Reason: HR <50 bpm Chlorhexidine Gluconate () 1 each TOPICAL DAILY [facility] Last Admin: 09/05/17 11:41 Dose: Not Given Clopidogrel Bisulfate (Plavix) 75 mg PO DAILY [facility] Last Admin: 09/05/17 06:41 Dose: 75 mg Diazepam (Valium) 5 mg PO Q6H PRN PRN PRN Reason: BACK SPASMS/ANXIETY Heparin Sodium (Beef Lung) (Heparin 500 Unit/5 Ml (100/Ml)) 500 unit IV UD PRN PRN Reason: HEPARIN FLUSH Sodium Chloride () 1,000 mls @ 150 mls/hr IV .Q6H40M [facility] Stop: 09/05/17 15:26 Last Admin: 09/05/17 09:18 Dose: 150 mls/hr Lisinopril (Zestril) 2.5 mg PO DAILY [facility] Magnesium Hydroxide (Milk Of Magnesia) 30 ml PO DAILY PRN PRN Reason: Constipation Metoprolol Tartrate (Lopressor (Beta Sharan)) 25 mg PO BID [facility] Last Admin: 09/05/17 06:41 Dose: 25 mg Morphine Sulfate (Morphine) 2 - 4 mg IV Q4H PRN PRN PRN Reason: MOD-SEVERE PAIN (4-10/10) Morphine Sulfate (Morphine) 2 - 4 mg IV Q4H PRN PRN PRN Reason: MOD-SEVERE PAIN (4-10/10) Nitroglycerin (Nitrostat) 0.4 mg SUBLINGUAL Q5M PRN PRN Reason: CHEST PAIN Ondansetron HCl (Zofran) 4 mg IV Q8H PRN PRN PRN Reason: NAUSEA Sodium Chloride () 5 - 30 ml IV UD PRN PRN Reason: SALINE FLUSH Last Admin: 09/05/17 10:22 Dose: 30 ml Sodium Chloride () 500 ml IV BOLUS PRN PRN Reason: VASO-VAGAL PROTOCOL Assessment/Plan Active and Suspected Problems Non-ST elevation CA (NSTEMI) (Acute)
[2017-09-05] MEDS: Lisinopril 2.5 MG Tablet PO (13:33)
--- NOTE | 2017-09-05 13:33 | PN_ITS ---
Patient Problems: Active and Suspected Problems Non-ST elevation NH (NSTEMI) (Acute) Subjective: CC: f/u NSTEMI Mental with chest pain and found to have elevated troponin consistent with non- ST elevation NH. he underwent left heart catheterization with stenting his circumflex artery. He currently denies any chest pain, shortness of breath or palpitations. Vitals/I&O's: Vital Signs Temp Pulse Resp BP Pulse Ox 98.8 F 75 22 H 113/63 98 09/05/17 12:00 09/05/17 13:00 09/05/17 13:00 09/05/17 13:00 09/05/17 13:00 Oxygen Flow Rate 2 Oxygen Delivery Method Room Air Weight: 82.1 kg Body Mass Index (BMI) 27.4 Intake and Output for Last 24 Hours 09/03/17 09/04/17 09/05/17 23:59 23:59 23:59 Intake Total 363 / 363 808 / 808 Balance 363 / 363 808 / 808 General: Alert, Oriented x3 Neck: Supple, No JVD Lungs: Clear to auscultation Cardiovascular: Regular rate, Normal S1, Normal S2 Abdomen: Bowel Sounds Present, Soft Extremities: No edema Laboratory Results 09/04/17 21:30: Troponin I 3.53 H* 09/05/17 00:02: Troponin I 3.09 H* 09/05/17 05:55: Sodium 138, Potassium 3.9, Chloride 104, Carbon Dioxide 27.0, Anion Gap 7, BUN 12, Creatinine 1.05, Estim Creat Clear Calc 90.48, Est GFR ( MDRD) Af Amer 100, Est GFR (MDRD) Non-Af 83, BUN/Creatinine Ratio 11.4, Glucose 99, Calcium 9.0, Triglycerides 347 H, Cholesterol 218 H, LDL Cholesterol 120, VLDL Cholesterol 69 H, HDL Cholesterol 29 L 09/05/17 05:55: WBC 8.4, RBC 5.33, Hgb 15.7, Hct 45.4, MCV 85.2, MCH 29.5, MCHC 34.6, RDW 14.3, RDW Differential 43.8, Plt Count 240, MPV 9.1, Immature Gran % ( Auto) 0.400, Neut % (Auto) 45.2 L, Lymph % (Auto) 45.4 H, [place] % (Auto) 8.2, Eos % (Auto) 0.4, Baso % (Auto) 0.4, Absolute Neuts (auto) 3.8, Absolute Lymphs (auto) 3.82, Total Counted Not Reportable 09/05/17 05:55: PT 12.8, INR 1.0, APTT 42.6 H 09/05/17 08:22: Activated Clotting Time 213 H 09/05/17 08:50: MRSA (PCR) Negative 09/05/17 08:55: Total Creatine Kinase 127 09/05/17 08:55: WBC 8.2, RBC 5.03, Hgb 14.8, Hct 43.1, MCV 85.7, MCH 29.4, MCHC 34.3, RDW 14.3, RDW Differential 44.0 H, Plt Count 237, MPV 9.5 09/05/17 10:21: Activated Clotting Time 136 Current Medications Acetaminophen (Tylenol) 650 mg PO Q6H PRN PRN PRN Reason: Mild Pain (1-3)/Temp > 100.7 F Aspirin (Ecotrin) 81 mg PO DAILY@0800 [facility] Last Admin: 09/05/17 06:41 Dose: 81 mg Atorvastatin Calcium (Lipitor) 80 mg PO QHS [facility] Last Admin: 09/04/17 21:34 Dose: 80 mg Atropine Sulfate () 0.5 mg IV UD PRN PRN Reason: HR <50 bpm Chlorhexidine Gluconate () 1 each TOPICAL DAILY [facility] Last Admin: 09/05/17 11:41 Dose: Not Given Clopidogrel Bisulfate (Plavix) 75 mg PO DAILY [facility] Last Admin: 09/05/17 06:41 Dose: 75 mg Diazepam (Valium) 5 mg PO Q6H PRN PRN PRN Reason: BACK SPASMS/ANXIETY Heparin Sodium (Beef Lung) (Heparin 500 Unit/5 Ml (100/Ml)) 500 unit IV UD PRN PRN Reason: HEPARIN FLUSH Sodium Chloride () 1,000 mls @ 150 mls/hr IV .Q6H40M [facility] Stop: 09/05/17 15:26 Last Admin: 09/05/17 09:18 Dose: 150 mls/hr Lisinopril (Zestril) 2.5 mg PO DAILY [facility] Last Admin: 09/05/17 13:33 Dose: 2.5 mg Magnesium Hydroxide (Milk Of Magnesia) 30 ml PO DAILY PRN PRN Reason: Constipation Metoprolol Tartrate (Lopressor (Beta Sharan)) 25 mg PO BID [facility] Last Admin: 09/05/17 06:41 Dose: 25 mg Morphine Sulfate (Morphine) 2 - 4 mg IV Q4H PRN PRN PRN Reason: MOD-SEVERE PAIN (4-10/10) Morphine Sulfate (Morphine) 2 - 4 mg IV Q4H PRN PRN PRN Reason: MOD-SEVERE PAIN (4-10/10) Nitroglycerin (Nitrostat) 0.4 mg SUBLINGUAL Q5M PRN PRN Reason: CHEST PAIN Ondansetron HCl (Zofran) 4 mg IV Q8H PRN PRN PRN Reason: NAUSEA Sodium Chloride () 5 - 30 ml IV UD PRN PRN Reason: SALINE FLUSH Last Admin: 09/05/17 10:22 Dose: 30 ml Sodium Chloride () 500 ml IV BOLUS PRN PRN Reason: VASO-VAGAL PROTOCOL Assessment/Plan Active and Suspected Problems Non-ST elevation NH (NSTEMI) (Acute) 1. NSTEMI s/p angioplasty with stenting to his circ; continue him on dual antiplatelet therapy, beta blockers, ACEI and statins 2. Dyslipidemia; he is on Lipitor. 3. DVT Prophylaxis with Lovenox.
[2017-09-05 15:16] LABS: Hematocrit 41.8 % (40-54); Mean Corp Hgb Conc 33.5 g/gl (32-36); Mean Corpuscular Hgb 28.8 pg (27.0-32.0); Mean Platelet Vol. 8.6 fl (6.2-12.0); Platelet Count 210 K/mm3 (150-450); RBC Distribution Width CV 14.4 % (11.6-14.6); RBC Distribution Width SD 44.2 fl (35.1-43.9); Red Blood Count 4.86 M/mm3 (4.6-6.2); Scan Indicated on CBC? Y/N NO; White Blood Count 7.6 K/mm3 (4.4-11.0)
--- NOTE | 2017-09-05 15:43 | CASEMGMT ---
SW called the financial dept as pt is self pay. Freda spoke w/pt earlier, gave him information on [employer]. Pt did not want to apply for Medicaid, he is self employed. SW attempted to meet w/pt in room, he is asleep. SW spoke w/pt's girlfriend Mary Grace at the bedside. She confirms that pt will not complete a Medicaid application. SW gave girlfriend information on [employer], [place], [facility] assist, 211, and prescription assistance programs. Pt woke up as SW was leaving, SW let him know gave his girlfriend some information regarding resources. Pt states understanding. SW remains available for any additional assist. WILLIAN Torres, WOUND CARE CENTER CONSULTANT
[2017-09-05 15:56] LABS: CPK Total, Creatine Kinase 97 U/L (39-308)
[2017-09-05] MEDS: Atorvastatin Calcium 80 MG Tablet PO (21:08)
[2017-09-05 21:43] LABS: Hematocrit 42.9 % (40-54); Hemoglobin 14.2 g/dl (13.0-16.5); Mean Corp Hgb Conc 33.1 g/gl (32-36); Mean Corpuscular Hgb 28.8 pg (27.0-32.0); Mean Platelet Vol. 8.7 fl (6.2-12.0); Platelet Count 202 K/mm3 (150-450); RBC Distribution Width CV 14.2 % (11.6-14.6); RBC Distribution Width SD 45.2 fl (35.1-43.9); Red Blood Count 4.93 M/mm3 (4.6-6.2); White Blood Count 9.3 K/mm3 (4.4-11.0)
[2017-09-05 21:44] LABS: Scan Indicated on CBC? Y/N NO
[2017-09-05 22:57] LABS: CPK Total, Creatine Kinase 93 U/L (39-308)
[2017-09-06] VITALS (12 sets, daily range): BP systolic 91–117; BP diastolic 43–79; PULSE 64–78; RESP 14–20; TEMP 36.2–36.9; O2SAT 95–97
[2017-09-06 02:36] LABS: Hematocrit 42.1 % (40-54); Hemoglobin 14.1 g/dl (13.0-16.5); Mean Corp Hgb Conc 33.5 g/gl (32-36); Mean Corpuscular Hgb 28.9 pg (27.0-32.0); Mean Corpuscular Volume 86.3 fL (80-94); Mean Platelet Vol. 8.9 fl (6.2-12.0); Platelet Count 201 K/mm3 (150-450); RBC Distribution Width CV 14.1 % (11.6-14.6); RBC Distribution Width SD 44.2 fl (35.1-43.9); Red Blood Count 4.88 M/mm3 (4.6-6.2); White Blood Count 8.4 K/mm3 (4.4-11.0)
[2017-09-06 02:39] LABS: Scan Indicated on CBC? Y/N NO
[2017-09-06 02:51] LABS: Anion Gap 7 (5-15); BUN 17 mg/dL (7-18); BUN/Creat Ratio 16.3 RATIO (10-20); Calcium,Total 8.3 mg/dL (8.5-10.1); Chloride 105 mmol/L (98-107); Creatinine, Serum 1.04 mg/dL (0.70-1.30); EST Glomerular Filtration Rate 84 mL/min (>60); Est Glom Filt Rate - Afr Amer 101 mL/min (>60); Estimated Creatinine Clearance 91.35 ml/min; Glucose 103 mg/dL (74-106); Potassium 4.1 mmol/L (3.5-5.1); Sodium Level 139 mmol/L (136-145)
[2017-09-06] MEDS: Enoxaparin 40 MG/0.4 ML Syringe SC (05:37)
[2017-09-06] MEDS: 0.9% NaCl Peripheral Flush Adult/Peds IV (05:37)
--- NOTE | 2017-09-06 07:52 | PN.CARD_ITS ---
Subjectve: Patient seen and evaluated and appears to be doing well Objective: Vital Signs Temp Pulse Resp BP Pulse Ox 97.2 F L 70 14 101/49 L 96 09/06/17 06:00 09/06/17 07:21 09/06/17 07:00 09/06/17 07:00 09/06/17 07:00 Oxygen Flow Rate 2 Oxygen Delivery Method Room Air Weight: 181 lb Body Mass Index (BMI) 27.4 Intake and Output for Last 24 Hours 09/04/17 09/05/17 09/06/17 23:59 23:59 23:59 Intake Total 363 / 363 1840 / 1840 480 / 480 Output Total 600 / 600 Balance 363 / 363 1240 / 1240 480 / 480 General: Awake, Alert, Oriented x 3 HEENT: PERRL, EOMI, Sclera Non Icteric Neck: Supple, Good ROM, No Lymph Node Enlargement Lungs: Clear to auscultation Cardiovascular: Regular Rhythm, Normal S1, Normal S2, No Murmurs, No Rubs, No Gallops Vascular: No Carotid Bruits, Normal Femoral Pulses, Normal Radial Pulses, Normal Dorsalis Pedal Pulse, Normal Posterior Tibial Pulses Abdomen: Bowel Sounds Present, Soft, Non Tender, No HSM, No Organomegaly Extremities: No Cyanosis, No Clubbing, No edema Neurological: No Focal Motor or Sensory Deficit 09/05/17 08:55: WBC 8.2, RBC 5.03, Hgb 14.8, Hct 43.1, MCV 85.7, MCH 29.4, MCHC 34.3, RDW 14.3, RDW Differential 44.0 H, Plt Count 237, MPV 9.5 09/05/17 15:00: WBC 7.6, RBC 4.86, Hgb 14.0, Hct 41.8, MCV 86.0, MCH 28.8, MCHC 33.5, RDW 14.4, RDW Differential 44.2 H, Plt Count 210, MPV 8.6 09/05/17 21:15: WBC 9.3, RBC 4.93, Hgb 14.2, Hct 42.9, MCV 87.0, MCH 28.8, MCHC 33.1, RDW 14.2, RDW Differential 45.2 H, Plt Count 202, MPV 8.7 09/06/17 02:30: WBC 8.4, RBC 4.88, Hgb 14.1, Hct 42.1, MCV 86.3, MCH 28.9, MCHC 33.5, RDW 14.1, RDW Differential 44.2 H, Plt Count 201, MPV 8.9 09/06/17 02:30: Sodium 139, Potassium 4.1, Chloride 105, Carbon Dioxide 27.0, Anion Gap 7, BUN 17, Creatinine 1.04, Est GFR (MDRD) Af Amer 101, Est GFR (MDRD ) Non-Af 84, BUN/Creatinine Ratio 16.3, Glucose 103, Calcium 8.3 L Rhythm: EKG: normal Sinus rhythm with no acute changes Assessment/Plan 1. Non-ST elevation myocardial infarction Patient presents with chest discomfort which is suggestive and has abnormal cardiac enzymes with no EKG changes. The catheterization demonstrated the following: Left main coronary artery-normal Anterior descending artery with mild disease Diagonal vessel with 60% proximal stenosis Circumflex artery with 80% distal stenosis Nondominant right coronary artery with no significant stenosis Preserved left ventricular ejection fraction Underwent successful angioplasty and stenting of the circumflex artery. His hemoglobin has remained stable there has been no drop of more than 3 g his groin is stable and his creatinine is also stable. I discussed with him about smoking cessation. 2. Dyslipidemia with low HDL Would need high intensity statin. Depending on the findings further recommendations will be made. Thank you for allowing me to participate in the care of your patient. Please don't hesitate to call if any issues arise. Can be discharged today on his current medications. Outpatient follow-up will be arranged.
[2017-09-06] MEDS: Aspirin E.C. 81 MG Tablet PO (07:53)
[2017-09-06] MEDS: Clopidogrel Bisulfate 75 MG Tablet PO (07:53)
[2017-09-06] MEDS: Metoprolol Tartrate 25 MG Tablet PO (07:53)
--- NOTE | 2017-09-06 08:47 | EKG12_ITS ---
Test Reason : AM EKG Blood Pressure : / mmHG Vent. Rate : 068 BPM Atrial Rate : 068 BPM P-R Int : 116 ms QRS Dur : 078 ms QT Int : 400 ms P-R-T Axes : 049 041 004 degrees QTc Int : 425 ms Normal sinus rhythm Normal ECG Confirmed by EMERITA NESS, LILIAN ([id number]), metropolitan editor CINDY FERRIS ([id number] on 09/09/2017 2:11:15 PM Referred By: LIBRADO Confirmed By:LILIAN FELDER MD
--- NOTE | 2017-09-06 09:38 | PCM.DC ---
- Discharge Diagnoses Current Active Problems: Current Active and Chronic Problems Non-ST elevation NE (NSTEMI) (Acute) Hypotension (Chronic) You will use the following diet at home:: Cardiac Discharge Activity: Return to Normal Activity Allergies/Adverse Reactions: Allergies No Known Allergies Allergy (Verified 09/04/17 18:08) Medications to take at Discharge Aspirin E.C. [Ecotrin] 81 mg PO DAILY@0800 tablet 09/06/17 Atorvastatin Calcium [Lipitor] 80 mg PO QHS 6 Days #30 tab 09/06/17 Clopidogrel Bisulfate [Plavix] 75 mg PO DAILY 6 Days #30 tab 09/06/17 Lisinopril [Zestril] 2.5 mg PO DAILY #30 tab 09/06/17 Metoprolol Tartrate [Lopressor (beta evelina)] 25 mg PO BID #60 tab 09/06/17 The following prescriptions were given: Atorvastatin Calcium [Lipitor] 80 mg PO QHS 6 Days #30 tab Clopidogrel Bisulfate [Plavix] 75 mg PO DAILY 6 Days #30 tab Lisinopril [Zestril] 2.5 mg PO DAILY #30 tab Metoprolol Tartrate [Lopressor (beta evelina)] 25 mg PO BID #60 tab Primary Care Physician: Care Physician,No Primary [Primary Care Provider] - Within 2 Weeks Proposed Discharge Date: 09/06/17
--- NOTE | 2017-09-06 09:40 | PCM.DC.SUM ---
Discharge Date and Diagnosis Date of Admission: 09/04/17 Date of Discharge: 09/06/17 - Primary Discharge Diagnosis Active and Suspected Problems Non-ST elevation NM (NSTEMI) (Acute) - Secondary Discharge Diagnosis Chronic Problems Hypotension (Chronic) Hospital Course and Treatment Summary of Care Provided: The patient is a 41 year old M presented with chest pain and found to have elevated troponin consistent with non-ST elevation NM. He underwent left heart catheterization with stenting his circumflex artery. He currently denies any chest pain, shortness of breath or palpitations. Monitored in the ICU after his stent placement and continued to do well. He was Discharge home in a stable condition symptom-free. We are maintaining him on dual antiplatelet therapy with Plavix and aspirin, metoprolol, lisinopril . On exam at the time of discharge; vital signs were stable. He was alert and oriented to time place and person. He did not appear to be any form of distress. S1 and S2 heard no murmur or gallop Lung exam was clear to auscultation with no adventitious sounds. Abdomen was soft nontender with normal bowel sounds. extremity exam did not reveal any edema, palpable pulses bilaterally. Neurologic exam was grossly intact. Discharge Activity: Return to Normal Activity Home Medications: Medications to take at Discharge Aspirin E.C. [Ecotrin] 81 mg PO DAILY@0800 tablet 09/06/17 Atorvastatin Calcium [Lipitor] 80 mg PO QHS 6 Days #30 tab 09/06/17 Clopidogrel Bisulfate [Plavix] 75 mg PO DAILY 6 Days #30 tab 09/06/17 Lisinopril [Zestril] 2.5 mg PO DAILY #30 tab 09/06/17 Metoprolol Tartrate [Lopressor (beta evelina)] 25 mg PO BID #60 tab 09/06/17 Following Prescrptions Were Given to Patient: Atorvastatin Calcium [Lipitor] 80 mg PO QHS 6 Days #30 tab Clopidogrel Bisulfate [Plavix] 75 mg PO DAILY 6 Days #30 tab Lisinopril [Zestril] 2.5 mg PO DAILY #30 tab Metoprolol Tartrate [Lopressor (beta evelina)] 25 mg PO BID #60 tab Primary Care Physician: Care Physician,No Primary [Primary Care Provider] - Within 2 Weeks Meaningful Use Info Meaningful Use Diagnoses (Choose all that apply): None applicable Code Visit Inpatient E&M: 92528 Disch Hosp
--- NOTE | 2017-09-06 09:49 | CASEMGMT ---
Addendum entered by Lilian Burr 09/06/17 10:06: The cost of the meds is $392.28. SW spoke w/pt, he cannot afford this. SW explained we can use the hospital assist one time, pt would like to do this. SW tubed the form down to the retail pharmacy for the prescription assist program, called the pharmacy, the meds will be ready in about 30 minutes. SW let pt and girlfriend know that the meds will be ready in about a half hour and they can pick them downstairs at the retail pharmacy. No further needs are anticipated. WILLIAN Torres, CHIEF ACCOUNTANT Original Note: SW spoke w/pt in room as pt does not have insurance. SW let pt know gave his girlfriend resources yesterday. SW asked pt about getting his meds covered when he leaves here. Pt agreeable to SW checking on the cost here to see if he can afford the meds. SW also explained that if needed we can use a one time hospital assist program, and after that, if he does not get insurance, [facility] may be able to help w/the cost of meds for a couple of months. Pt states he will start on the meds given here, but then will see his thread drawer to get on the natural equivalent, and will likely not continue with the meds prescribed by the physicians here. Pt's girlfriend in the room states pt has lupus and he sees the thread drawer for this, and it has helped. ELIGIO called the pharmacy and tubed the scripts to the pharmacy, they are to call this SW with the cost. WILLIAN Torres, CHIEF ACCOUNTANT
[2017-09-06] MEDS: Lisinopril 2.5 MG Tablet PO (09:54)
== END 2017-09-06 10:15 | disposition home or self-care (01) | DRG 247 ==
LOC: ED 18:57 → PCU 19:27 → ICU 09-05 10:27 → PCU 09-05 10:27
PROVIDERS: Internal Medicine Cardiovascular Disease; Emergency Provider Emergency Medicine; Visit Provider Internal Medicine
DX: I21.4 Non-ST elevation (NSTEMI) myocardial infarction (principal); I95.89 Other hypotension; I25.10 Atherosclerotic heart disease of native coronary artery without angina pectoris; E78.5 Hyperlipidemia, unspecified; F17.210 Nicotine dependence, cigarettes, uncomplicated
CPT/HCPCS: 36415; 71045; 80048; 80061; 82550; 84484; 85025; 85027; 85347; 85610; 85730; 87641; 92928; 93005; 93458; 99152; 99153; 99285; 99406; J7030; J7040; Q9967; A4216; C1725; C1769; C1874; C1887; C9600

== ENCOUNTER → 2019-07-31 07:46 | Outpatient (CLI) | payer SELFPAY ==
[2019-07-30 16:16] VITALS: BMI 25.0
[2019-07-31 09:26] LABS: AST(SGOT) 29 U/L (15-37); Alanine Aminotransfer ALT/SGPT 38 U/L (16-61); Albumin, Serum 3.7 g/dL (3.2-5.0); Alkaline Phosphatase 87 U/L (45-117); Bilirubin, Direct 0.07 mg/dL (0.00-0.30); Cholesterol 251 mg/dL (200); Globulin 3.7 g/dL (2.2-4.2); High Density Lipoprotein 26 mg/dL; Protein, Total 7.4 g/dL (6.4-8.2); Triglycerides 623 mg/dL
== END ==
PROVIDERS: Referring Provider Internal Medicine Cardiovascular Disease; Visit Provider Internal Medicine Cardiovascular Disease
DX: E78.2 Mixed hyperlipidemia (principal); Z91.19 Patient's noncompliance with other medical treatment and regimen
CPT/HCPCS: 36415; 80061; 80076

== ENCOUNTER → 2019-08-10 06:09 | Outpatient (CLI) | payer SELFPAY ==
[2019-07-30 16:16] VITALS: BMI 25.0
--- NOTE | 2019-08-10 17:37 | STRESSREP_ITS ---
Stress Test Report Exercise myocardial perfusion stress test. 43-year-old man with a history of chest pain. Stress protocol: Resting EKG demonstrates normal sinus rhythm with a rate of 65 bpm normal intervals are noted resting blood pressure is 110/68 mmHg. The patient exercised according to regular Albino protocol for a total duration of 8 minutes and 33 seconds. The maximum heart rate attained was 166 bpm which was 93% of maximum predicted heart rate the maximum workload was 10.4 metabolic equivalents. At rest there were no ST or T wave changes noted suggest ischemia peak exercise upsloping ST changes only were noted with no meet the criteria for ischemia. Mild chest discomfort was noted no arrhythmias were noted the test was terminated due to leg fatigue. The resting blood pressure was 110/68 with a peak blood pressure 152/72 mmHg. Myocardial perfusion protocol. 11.7 mCi of technetium 99m sestamibi was injected at rest. The patient ex ercised according to regular Albino protocol for 8-1/2 minutes and at peak exercise 33.9 mCi of technetium 99m sestamibi was injected stress images were obtained stress and rest images were reconstructed and compared in the short axis vertical long horizontal long axis. Gated images were also noted. Perfusion SPECT analysis: Review of the images demonstrate normal uptake of tracer noted in all areas of the myocardium the resting images similar demonstrate normal uptake of tracer noted in all areas of the myocardium with no reversibility to suggest ischemia no previous infarct is noted. Gated SPECT analysis: The gated ejection fraction is 69%. Conclusion: Normal exercise myocardial perfusion stress test at a high workload with no nuclear images suggestive of ischemia. Good functional capacity. Mild chest discomfort of questionable significance.
== END ==
PROVIDERS: Referring Provider Internal Medicine Cardiovascular Disease; Visit Provider Internal Medicine Cardiovascular Disease
DX: R07.9 Chest pain, unspecified (principal); I25.10 Atherosclerotic heart disease of native coronary artery without angina pectoris; Z95.5 Presence of coronary angioplasty implant and graft
CPT/HCPCS: 78452; 93017; A9500; A4216

== ENCOUNTER → 2020-11-03 10:01 | Outpatient (CLI) | payer OTHER, SELFPAY ==
[2020-11-02 07:54] VITALS: BMI 28.5
[2020-11-03 10:27] LABS: Absolute Lymphocyte Count 3.05 X10^3/uL (0.83-4.51); Absolute Neutrophil Count 3.6 X10^3/uL (2.0-7.7); Basophil# 0.03 X10^3/uL; Basophil% 0.4 % (0-1); Eosinophil# 0.03 X10^3/uL; Eosinophils% 0.4 % (0-5); Hematocrit 45.1 % (40-54); Hemoglobin 14.9 g/dL (13.0-16.5); Lymphocyte # 3.05 X10^3/ul (4.0); Lymphocyte % 42.5 % (19-41); Mean Corpuscular Hgb 29.6 pg (27.0-32.0); Mean Corpuscular Volume 89.5 fL (80-94); Mean Platelet Vol. 8.5 fl (6.2-12.0); Monocyte# 0.42 X10^3/uL; Monocyte% 5.9 % (0-10); NRBC Flagged by Analyzer 0 % (0-5); Neutrophil # 3.61 X10^3/uL (2.7-7.7); Neutrophil % 50.4 % (47-70); Platelet Count 233 K/mm3 (150-450); RBC Distribution Width SD 42.7 fl (35.1-43.9); Red Blood Count 5.04 M/mm3 (4.6-6.2); White Blood Count 7.2 K/mm3 (4.4-11.0)
[2020-11-03 10:49] LABS: BNP,B-Type NATRIURETIC PEPTIDE 11.5 pg/mL (0-100)
[2020-11-03 11:11] LABS: Anion Gap 5 (5-15); BUN 16 mg/dL (7-18); BUN/Creat Ratio 13.8 RATIO (10-20); Calcium,Total 8.7 mg/dL (8.5-10.1); Chloride 108 mmol/L (98-107); Creatinine, Serum 1.16 mg/dL (0.70-1.30); EST Glomerular Filtration Rate 73 mL/min (>60); Est Glom Filt Rate - Afr Amer 88 mL/min (>60); Glucose 169 mg/dL (74-106); Sodium Level 137 mmol/L (136-145)
== END ==
PROVIDERS: Referring Provider Internal Medicine Cardiovascular Disease; Visit Provider Internal Medicine Cardiovascular Disease
DX: R06.02 Shortness of breath (principal); I10 Essential (primary) hypertension; R07.9 Chest pain, unspecified; F17.210 Nicotine dependence, cigarettes, uncomplicated; Z95.5 Presence of coronary angioplasty implant and graft
CPT/HCPCS: 36415; 80048; 83880; 85025

== ENCOUNTER 2020-11-28 08:21 | Day surgery (SDC) | payer OTHER, SELFPAY ==
[2020-11-02 07:54] VITALS: BMI 28.5
--- NOTE | 2020-11-03 10:23 | RAD_ITS ---
INDICATION: cad EXAMINATION/TECHNIQUE: X-RAY - XR Chest 2 Views COMPARISON: 09/04/2017. FINDINGS: The lungs are clear. The cardiomediastinal silhouette is unremarkable. No pleural effusion or pneumothorax. No acute osseous abnormalities. RAD/Chest PA and Lateral IMPRESSION: No acute radiographic abnormalities. Electronically Signed: Eliot Beard MD at 17:02 EDT Tel , Service support ,
[2020-11-25 08:41] VITALS: BMI 28.5
[2020-11-28] VITALS (14 sets, daily range): BP systolic 115–139; BP diastolic 68–88; PULSE 67–89; RESP 14–16; TEMP 36.4–36.7; O2SAT 93–99
[2020-11-28] MEDS: 0.9% Normal Saline 1,000 ML 60 ML IV (10:00)
--- NOTE | 2020-11-28 10:22 | CL.D_ITS ---
Patient Name: MONICA NIETO Study Date: 11/28/2020 Performing: Elvis Ricketts MD Ht: 68.11 inches 173 cm : 1975 Wt: 187.39 lbs 85 kg Age: 44 Gender: male BSA: 1.99 PROCEDURE(S) PERFORMED [id number]/LV CLINICAL PROFILE AND INDICATIONS Indications: Worsening Angina Heart Failure: None Stress/Imaging Stress/Image Study Performed: No CAD Presentations: Unstable angina. CONCLUSIONS Coronary artery disease involving the mid left circumflex artery with minimal disease noted in the LA D as well as the right coronary artery. RECOMMENDATIONS Referred for immediate PCI DESCRIPTION OF PROCEDURE The patient arrived to the procedure lab. The risks and benefits of the procedure as well as a full d escription of our services here and current unavailability of surgical backup were fully explained to the patient and/or their significant other prior to the catheterization. The Timeout was completed, verifying the correct patient and procedure. The patient's procedural site was prepped and draped in the usual fashion. Local anesthetic was given subcutaneously to right radial region with Lidocaine 2% . Using a modified Seldinger technique, arterial access was obtained via the right radial artery, a 6 Fr sheath was inserted. Right Coronary Artery selective angiography was then performed in multiple v iews using a 5 Fr. 4.0 [place] catheter. Left Coronary Artery selective angiography was performed in mu ltiple views using a 5 Fr. 4.0 [place] catheter. Left Ventriculography was performed in DAVILA projection using a 5 Fr. Pigtail catheter. LV to AO pullback pressures were then recorded. CORONARY ANGIOGRAPHY DOMINANCE: Left Dominant LEFT HEART ASSESSMENT Normal LV wall motion Normal Left Ventricular systolic function LEFT MAIN: Angiographically normal LEFT ANTERIOR DESCENDING ARTERY: Mild luminal irregularities less than 30% CIRCUMFLEX ARTERY: MID CIRC: 70 % Stenosis DISTAL CIRC: Previously placed stent is patent RIGHT CORONARY ARTERY: No significant disease noted COMPLICATIONS PROCEDURE MEDICATIONS Versed 1 mg IV Fentanyl 50 mcg IV Versed 1 mg IV Oxygen: 2 L/min via nasal cannula Heparin diluted in 23cc Heparinized saline. Patient given 10cc IA of this solution. 11/28/2020 09:54:5 2 Heparin 5000 unit(s) IV 11/28/2020 10:19:46 Verapamil 2.5mg, Ntg 100mcgs, 2000 units of Heparin diluted in 23cc Heparinized saline. Patient give n 10cc IA of this solution. 11/28/2020 09:54:52 SUMMARY OF HEMODYNAMIC DATA Time AIR REST ECG 08:47:42 AO 99/68 (81) SA 10:04:30 LV 112/6, 11 10:10:00 LV 111/6, 10 10:10:08 LV 101/9, 13 10:10:46 LV 117/12, 16 10:10:52 LVp 117/10, 14 10:10:55 AOp 98/-34 (15) 10:11:00 Signed By Elvis Ricketts MD On 11/28/2020 10:21:34 Elvis Ricketts MD
--- NOTE | 2020-11-28 12:19 | EKG12_ITS ---
Test Reason : PCI Blood Pressure : / mmHG Vent. Rate : 086 BPM Atrial Rate : 086 BPM P-R Int : 116 ms QRS Dur : 088 ms QT Int : 380 ms P-R-T Axes : 046 039 047 degrees QTc Int : 454 ms Normal sinus rhythm Normal ECG Confirmed by EMERITA NESS, LILIAN ([id number]), editor news VICENTE GUTIERRES ([id number]) on 11/30/2020 9:13:54 AM Referred By: CHON Confirmed By:LILIAN FELDER MD
[2020-11-28 12:31] LABS: Hemoglobin 15.4 g/dL (13.0-16.5); Mean Corp Hgb Conc 34.2 g/dL (32-36); Mean Corpuscular Hgb 29.2 pg (27.0-32.0); Mean Corpuscular Volume 85.4 fL (80-94); Platelet Count 242 K/mm3 (150-450); RBC Distribution Width CV 12.7 % (11.6-14.6); RBC Distribution Width SD 39.6 fl (35.1-43.9); Red Blood Count 5.27 M/mm3 (4.6-6.2); White Blood Count 8.9 K/mm3 (4.4-11.0)
--- NOTE | 2020-11-28 12:35 | CL.I_ITS ---
Patient Name: MONICA NIETO Study Date: 11/28/2020 Performing: Tali Han MD Ht: 68.11 inches 173 cm : 1975 Wt: 187.39 lbs 85 kg Age: 44 Gender: male BSA: 1.99 PROCEDURE(S) PERFORMED [id number] W OR WO PTCA, SINGLE CORONARY ARTERY CLINICAL PROFILE AND CO-MORBIDITIES Indications: Worsening Angina Heart Failure: None Stress/Imaging Stress/Image Study Performed: No CAD Presentations: Unstable angina. CONCLUSIONS Successful SHERIF to mLCx (Orsiro 3.0 x 22mm stent) RECOMMENDATIONS DESCRIPTION OF PROCEDURE The patient arrived to the procedure lab. The risks and benefits of the procedure as well as a full d escription of our services here and current unavailability of surgical backup were fully explained to the patient and/or their significant other prior to the catheterization. The Timeout was completed, verifying the correct patient and procedure. The patient's procedural site was prepped and draped in the usual fashion. Local anesthetic was given subcutaneously to right radial region with Lidocaine 2% Using a modified Seldinger technique,arterial access was obtained via the right radial artery, a 6Fr sheath was inserted. Right Coronary Artery selective angiography was then performed in multiple view s using a 5 Fr. 4.0 Diamond catheter. Left Coronary Artery selective angiography was performed in multi ple views using a 5 Fr. 4.0 Diamond catheter. Left Ventriculography was performed in DAVILA projection usi ng a 5 Fr. Pigtail catheter. LV to AO pullback pressures were then recorded. XB3 Guide catheter was inserted and engaged into the LCA. BMW Guide wire was advanced to the Circ umflex. 2.5X12 EMERGE Balloon catheter was inserted. 2.5X12 EMERGE Balloon catheter was advanced acro ss lesion in the circumflex, mid. PTCA balloon inflated at 6 atms for 10 secs. Angiogram performed po st balloon dilatation. 3.0X22 ORSIRO Drug Eluting stent was inserted. 3.0X22 ORSIRO Drug Eluting sten t was advanced across the lesion in the circumflex, mid. Angiogram performed pre stent deployment. An giogram performed post stent deployment. Angiogram performed post stent deployment. The arterial sh eath was pulled and a TR Band was applied for hemostasis - 11CC AIR INTERVENTION INFORMATION LESION SITE: Circumflex (Mid) Lesion Complexity: High/C, chronic total occlusion: No, lesion at bifurcation: Yes, thrombus present: No, lesion length: 20 mm, culprit lesion: Yes, Previously treated lesion: No Pre Stenosis: 80 % Pre intervention PARAM flow: 3 PROCEDURE: Drug Eluting Stent with pre dilatation. Post Stenosis: 0 % Post intervention PARAM flow: 3 Lesion Devices: Rider .014 BMW [place] Straight 190cm Cardinal 6 Fr XB3.0 100cm Guide Catheter Jacobo Sci EMERGE MR 2.50x12 BALLOON COMPLICATIONS No Complications PROCEDURE MEDICATIONS Versed 1 mg IV Fentanyl 50 mcg IV Versed 1 mg IV Oxygen: 2 L/min via nasal cannula Brilinta 180 mg PO @ 11/28/2020 10:51:56 Heparin diluted in 23cc Heparinized saline. Patient given 10cc IA of this solution. 11/28/2020 09:54:5 2 Heparin 5000 unit(s) IV 11/28/2020 10:19:46 Verapamil 2.5mg, Ntg 100mcgs, 2000 units of Heparin diluted in 23cc Heparinized saline. Patient give n 10cc IA of this solution. 11/28/2020 09:54:52 SUMMARY OF HEMODYNAMIC DATA Time AIR REST ECG 08:47:42 AO 99/68 (81) SA 10:04:30 LV 112/6, 11 10:10:00 LV 111/6, 10 10:10:08 LV 101/9, 13 10:10:46 LV 117/12, 16 10:10:52 LVp 117/10, 14 10:10:55 AOp 98/-34 (15) 10:11:00 RM AIR REST 10:21:28 Signed By Tali Han MD On 11/28/2020 12:46:27 Tali Han MD
--- NOTE | 2020-11-28 14:16 | CRPHASE1_ITS ---
Patient Communication PHII Cardiac Rehab Discussed with Patient:: Yes Guide to Cardiac Rehab Given to Patient:: Yes Cardiac Rehab Facility Choice List Given to Patient:: Yes - Pt chooses [facility] Choice Program [facility] CR PHII:: Communication Given to CR, Refer to [facility] Refer Phase II Cardiac Rehab:: Yes Sessions:: 36 sessions - 3 days/wk, 12 weeks Cardiac Rehabilitation Info Cardiac Rehabilitation Program Information: Cardiac Rehabilitation is important for patients like you who are recovering from a heart problem. Cardiac rehabilitation programs are recognized as integral to the continued care of the patient with coronary heart disease. The cardiac rehabilitation program is designed to optimize a patient's physical, psychological, and social functioning. [facility] day care [facility] work in cardiac rehabilitation programs and assist you with getting the treatments you need to get stronger and healthier - like exercise, healthy eating habits, and medications. Cardiac rehabilitation has been show to help people with heart problems live longer and have better life enjoyment than people who do not go to cardiac rehabilitation. Please contact the Cardiac Rehabilitation Program at [facility] [place] at in two weeks if you have not heard from them.
--- NOTE | 2020-11-28 14:17 | CRPH1.INSTRU ---
General Education CAD and cardiac anatomy and function:: Patient communicates acknowledgment Explanation of diagnoses and procedures:: Patient communicates acknowledgment Sign/Symptoms of NH:: Patient communicates acknowledgment Antiplatelet therapy: Patient communicates acknowledgment Proper use of NTG-SL: Not instructed Emergency procedures and activation of EMS: Patient communicates acknowledgment Compliance of all prescribed medications: Patient communicates acknowledgment Smoking Nicotine/Smoking Response Code:: Patient communicates acknowledgment Dyslipidemia Dyslipidemia Response Code:: Patient communicates acknowledgment Overweight/Obesity Overweight/Obesity:: Patient communicates acknowledgment Heart Disease Heart Disease Response Code:: Patient communicates acknowledgment Diabetes Diabetes:: Patient communicates acknowledgment Metabolic Syndrome Metabolic Syndrome Response Code:: Patient communicates acknowledgment Sedentary Sedentary Response Code:: Patient communicates acknowledgment Stress Stress Response Code:: Patient communicates acknowledgment
[2020-11-28] MEDS: TICAGRELOR 90 MG TABLET PO (21:24)
[2020-11-28] MEDS: Omega-3 Acid Ethyl Esters 1 GM Capsule 2 GM PO (21:24)
[2020-11-29 03:00] VITALS: PULSE 65
[2020-11-29 03:28] VITALS: BP 111/72; PULSE 72; RESP 14; TEMP 36.3; O2SAT 96
[2020-11-29 06:45] VITALS: PULSE 68
[2020-11-29 07:30] LABS: Hematocrit 45.5 % (40-54); Hemoglobin 15.3 g/dL (13.0-16.5); Mean Corp Hgb Conc 33.6 g/dL (32-36); Mean Corpuscular Hgb 29.5 pg (27.0-32.0); Mean Corpuscular Volume 87.8 fL (80-94); Mean Platelet Vol. 8.9 fl (6.2-12.0); Platelet Count 250 K/mm3 (150-450); RBC Distribution Width CV 12.8 % (11.6-14.6); RBC Distribution Width SD 41.3 fl (35.1-43.9); Red Blood Count 5.18 M/mm3 (4.6-6.2)
[2020-11-29 08:03] LABS: AST(SGOT) 13 U/L (15-37); Alanine Aminotransfer ALT/SGPT 29 U/L (16-61); Albumin, Serum 3.5 g/dL (3.2-5.0); Alkaline Phosphatase 71 U/L (45-117); Anion Gap 7 (5-15); BUN 14 mg/dL (7-18); BUN/Creat Ratio 14.6 RATIO (10-20); Calcium,Total 8.7 mg/dL (8.5-10.1); Chloride 106 mmol/L (98-107); Creatinine, Serum 0.96 mg/dL (0.70-1.30); EST Glomerular Filtration Rate 91 mL/min (>60); Est Glom Filt Rate - Afr Amer 110 mL/min (>60); Estimated Creatinine Clearance 95.99 ml/min; Globulin 3.5 g/dL (2.2-4.2); Glucose 100 mg/dL (74-106); Potassium 4.1 mmol/L (3.5-5.1); Sodium Level 138 mmol/L (136-145)
--- NOTE | 2020-11-29 08:26 | PCM.PN.CARD ---
Subjective Subjective: Patient seen and evaluated. Appears to be doing well. Has no complaints this morning status post PCI. Objective Data Vital Signs: Vital Signs Temp Pulse Resp BP Pulse Ox 97.4 F L 68 14 111/72 96 11/29/20 03:28 11/29/20 06:45 11/29/20 03:28 11/29/20 03:28 11/29/20 03:28 Oxygen Delivery Method Room Air Weight: 188 lb Body Mass Index (BMI) 28.5 Intake & Output: Intake and Output for Last 24 Hours 11/27/20 11/28/20 11/29/20 23:59 23:59 23:59 Intake Total 771.91 / 1071.91 1700 / 1700 Balance 771.91 / 1071.91 1700 / 1700 Lab / Micro Data Result Diagrams: 11/29/20 06:55 11/29/20 06:55 Labs: Laboratory Results - last 24 hr 11/28/20 11/29/20 11/29/20 12:00 06:55 06:55 WBC 8.9 9.0 RBC 5.27 5.18 Hgb 15.4 15.3 Hct 45.0 45.5 MCV 85.4 87.8 MCH 29.2 29.5 MCHC 34.2 33.6 RDW Std Deviation 39.6 41.3 RDW Coeff of Fred 12.7 12.8 Plt Count 242 250 MPV 9.0 8.9 Sodium 138 Potassium 4.1 Chloride 106 Carbon Dioxide 25.0 Anion Gap 7 BUN 14 Creatinine 0.96 Estim Creat Clear Calc 95.99 Est GFR (MDRD) Af Amer 110 Est GFR (MDRD) Non-Af 91 BUN/Creatinine Ratio 14.6 Glucose 100 Calcium 8.7 Total Bilirubin 0.70 AST 13 L ALT 29 Alkaline Phosphatase 71 Total Protein 7.0 Albumin 3.5 Globulin 3.5 Albumin/Globulin Ratio 1.0 Cardiology Labs/Tests 11/28/20 12:00: WBC 8.9, RBC 5.27, Hgb 15.4, Hct 45.0, MCV 85.4, MCH 29.2, MCHC 34.2, Plt Count 242, MPV 9.0 11/29/20 06:55: WBC 9.0, RBC 5.18, Hgb 15.3, Hct 45.5, MCV 87.8, MCH 29.5, MCHC 33.6, Plt Count 250, MPV 8.9 11/29/20 06:55: Sodium 138, Potassium 4.1, Chloride 106, Carbon Dioxide 25.0, Anion Gap 7, BUN 14, Creatinine 0.96, Est GFR (MDRD) Af Amer 110, Est GFR (MDRD) Non-Af 91, BUN/Creatinine Ratio 14.6, Glucose 100, Calcium 8.7, Total Bilirubin 0.70 Rhythm: EKG: ECHO: Stress Test: Cardiac Cath: PCI: CT Surgery: Holter monitor: EPS: PPM: CXR: Chest CT Scan: Physical Exam Const oriented x3 and healthy appearing Orientation / Consciousness: awake HEENT normocephalic Eyes PERRL and conjunctivae normal Neck supple, no JVD and no carotid bruits Chest inspection of chest normal Resp normal respiratory effort and clear to auscultation bilaterally Cardio Palpation: normal PMI Rate: regular rate Rhythm: regular rhythm Heart Sounds: S1 normal and S2 normal Peripheral Pulses: pulses 2+ throughout GI normal to inspection, nondistended, normoactive bowel sounds Extremity normal to inspection and no clubbing, cyanosis or edema Psych mental status grossly normal Assessment & Plan Assessment/Plan (1) History of coronary artery stent placement: Status: Chronic Code(s): Z95.5 - Presence of coronary angioplasty implant and graft Plan: Patient is status post angioplasty and stenting of the left circumflex artery. Patient appears to be doing well. No complaints at this time. Will discharge for outpatient follow-up. (2) Hyperlipidemia: Status: Chronic Code(s): E78.5 - Hyperlipidemia, unspecified Qualifiers: Hyperlipidemia type: pure hypercholesterolemia Qualified Code(s): E78.00 - Pure hypercholesterolemia, unspecified; E78.0 - Pure hypercholesterolemia Plan: We will continue with aggressive risk factor modification.
--- NOTE | 2020-11-29 08:28 | PCM.DC ---
Discharge Instructions Outpatient Procedure Reason For Visit: CAD,CHEST PAIN,SOB,HTN Diet Discharge Diet: Low fat / Low cholesterol and 2000 Calorie Control Diet Activity Discharge Activity: Return to Normal Activity Dressing / Incision Call your doctor if your incision/area has: Continuous Slow Oozing, Increased Pain/ Swelling, Increased Redness and Swelling at the incision site Call your doctor if you observe: Numbness or Tingling Follow Up Care When: Follow-up in [facility] group office in 4 to 6 weeks with nurse practitioner Test Results: Test results from this visit will be discussed in further detail at your follow-up appointment, if applicable. Discharge Plan Admission Attending Provider: Elvis Ricketts Primary Care Provider: Shawn Patten Discharge Orders/Prescriptions Prescriptions: New Brilinta 90 mg Tablet 90 mg PO BID Qty: 60 RF: 3 Continued Vascepa 1 gram capsule 2 g PO BID Qty: 360 RF: 4 losartan 100 mg tablet 100 mg PO DAILY Qty: 90 RF: 3 Chantix 1 mg Tablet 1 mg PO BID RF: 0 aspirin [Adult Aspirin Regimen] 81 mg tablet,delayed release (DR/EC) 81 mg PO DAILY RF: 0 Referrals: Shawn Patten MD [Primary Care Provider] -
[2020-11-29 08:55] VITALS: BP 120/71; PULSE 86; RESP 16; TEMP 36.7; O2SAT 97
[2020-11-29] MEDS: TICAGRELOR 90 MG TABLET PO (09:01)
--- NOTE | 2020-11-29 09:12 | CASEMGMT ---
Pt to be dc'd on Brillinta. RN CM in to pt room to give Brillinta savings card. Pt pharmacy just opened but script not filled yet. Pt states he will be going there and did not want to wait for the cost of the medication. Pt aware if it is not affordable at next refill to discuss with doctor to see if it could be substituted. Pt verbalizes understanding.
--- NOTE | 2020-11-29 10:00 | EKG12_ITS ---
Test Reason : AM EKG Blood Pressure : / mmHG Vent. Rate : 069 BPM Atrial Rate : 069 BPM P-R Int : 124 ms QRS Dur : 080 ms QT Int : 392 ms P-R-T Axes : 065 053 042 degrees QTc Int : 420 ms Normal sinus rhythm Normal ECG Confirmed by EMERITA NESS, LILIAN ([id number]), map editor VICENTE GUTIERRES ([id number]) on 11/30/2020 9:08:19 AM Referred By: ROBER Confirmed By:LILIAN FELDER MD
--- NOTE | 2020-11-29 10:09 | PHA.DC.MC ---
Pharmacy Service has performed discharge medication reconciliation and counseling for this patient. 1. TICAGRELOR 90MG PO BID The patient's discharge medication list was reviewed for discrepancies and discrepancies were resolved. Home Medications aspirin 81 mg tablet,delayed release 81 mg PO DAILY 05/23/20 icosapent ethyl 1 gram capsule 2 g PO BID #360 cap 11/02/20 losartan 100 mg tablet 100 mg PO DAILY #90 tablet 11/02/20 Chantix 1 mg PO BID 11/25/20 ticagrelor [Brilinta] 90 mg PO BID #60 tab 11/29/20 The patient was counseled on the following discharge medications and changes in medications for homegoing were reviewed. The Reason for Use, instructions for use, and potential side effects were reviewed for all new medications. The patient's questions regarding all of their medications were answered. The patient was able to verbally demonstrate an understanding of their discharge medications.
== END 2020-11-29 08:31 | disposition home or self-care (01) ==
LOC: CLSP 08:43 → PCU 14:32
PROVIDERS: Specialist; PCP Family Medicine; Visit Provider Internal Medicine Cardiovascular Disease
DX: I25.110 Atherosclerotic heart disease of native coronary artery with unstable angina pectoris (principal); I10 Essential (primary) hypertension; E78.5 Hyperlipidemia, unspecified; Z91.19 Patient's noncompliance with other medical treatment and regimen; F17.210 Nicotine dependence, cigarettes, uncomplicated; Z79.82 Long term (current) use of aspirin; Z79.899 Other long term (current) drug therapy; I25.2 Old myocardial infarction; Z95.5 Presence of coronary angioplasty implant and graft
CPT/HCPCS: 36415; 71046; 80053; 85027; 92928; 93005; 93458; 99152; 99153; J7030; J7040; Q9967; C1725; C1769; C1874; C1887; C1894; C9600; J1327

== ENCOUNTER → 2020-12-12 09:05 | Outpatient (CLI) | payer OTHER, SELFPAY ==
[2020-11-25 08:41] VITALS: BMI 28.5
--- NOTE | 2020-12-12 09:59 | CR.HP_ITS ---
CR - History & Physical - General Arrival date:: 12/12/20 Arrival time:: 09:58 Date of Referral:: 12/02/20 Date of CR Evaluation:: 12/12/20 Referring Physician: Dr. Elvis Ricketts Primary Diagnosis: PCI w/coronary stenting - History of Present Cardiac Event Onset Date: Enter Onset Date of cardiac illnesses in Comment field below Acute Myocardial Infarction within 12 months:: Yes - 12/02/2020 PTCA or coronary stenting:: Yes - 12/02/2020 Type of Symptoms:: chest pain - Sleep Disorder Evaluation Hx of Sleep Apnea: Yes Do you snore loudly (louder than talking or can be heard through closed doors)?: Yes Do you often feel tired/ fatigued/ sleepy during daytime?: No Has anyone observed you stop breathing during sleep?: No History of Hypertension (for STOP score): Yes - Parents both have history of CAMILLA but not patient. STOP Results: Positive - Medications Home Medications: Ambulatory Orders Medication Instructions Recorded aspirin 81 mg tablet,delayed 81 mg PO DAILY 05/23/20 release icosapent ethyl 1 gram capsule 2 g PO BID #360 cap 11/02/20 losartan 100 mg tablet 100 mg PO DAILY #90 tablet 11/02/20 ticagrelor [Brilinta] 90 mg PO BID #60 tab 11/29/20 - Allergies Allergies/Adverse Reactions: Allergies lisinopril Allergy (Verified 11/02/20 07:55) cough atorvastatin Adverse Reaction (Verified 11/02/20 07:55) extremity swelling Advanced Directives - Advanced Directives Power of Upper And Bottom Lacer Hand: No Living Will: No Advance Directives Information Provided: Yes Advance Directives on File: No DNR Order?:: No - MOLST See MOLST form: No Past Medical History - Covid-19 Screening Fever: No Unexplained muscle aches: No Current respiratory symptoms: No Upper respiratory infections symptoms: No Gastro-intestinal symptoms: No Glo-Yfxg-Dxevbn symptoms: No Has tested positive for COVID-19 in last 30 days: No Had contact w/person w/symptoms or Covid-19 (+) last 14 days: No Has High Risk Exposures ID'd by Health dept/Inf Control team: No 65 years or older:: No Lives in Assisted Living facility:: No Has a chronic lung disease or moderate to severe asthma:: No Has a serious heart condition:: No Immunocompromised:: No Severely obese (Body Mass Index of 40 or higher):: No Diabetic:: No Has chronic kidney disease undergoing dialysis:: No - Past Medical Illness Medical History: Past Medical History (Last Reviewed 11/25/20 @ 08:43 by Kallie Razo) Atherosclerosis of coronary artery without angina pectoris I25.10 History of non-ST elevation myocardial infarction (NSTEMI) Onset Date: 09/05/17 I25.2 Hyperlipidemia E78.5 Hypotension I95.9 Medical non-compliance Z91.19 Nicotine dependence F17.200 - Past Surgical History Surgical History: Past Surgical History (Last Updated 11/28/20 @ 12:01 by Nasrin Avelar) History of coronary artery stent placement Onset Date: 11/28/20 Z95.5 EIY-GAW-Accerc LCx 2.5 x 16 mm Promus Synergy 09/05/17; PCI-SHERIF-Mid LCx w/ 3.0 x 22 Orsiro Stent 11/28/2020 Surgical History: noncontributory - Family History Summary Family History: Family History (Last Reviewed 11/25/20 @ 08:43 by Kallie Razo) Mother Heart disease Father Heart disease Social History - Smoking History Smoking Status: Current every day smoker Years Smokin - previous use of Chantix had to quit medication. Packs Smoked per Day: 0.5 Hx Tobacco Use: Yes Hx Smoking Exposure: Yes - Alcohol Use Alcohol Usage: No - very rare occasion. - Substance Abuse Hx Substance Use: No - Occupation Occupation (List type of work in comments):: Unemployed - Hobbies, Recreation, Social Activities Hobbies: Woodworking, Other Recreational Activities: I am able to engage in most, but not all activities Social Environment - Status Marital Status: - Current Living Arrangements Living Environment:: Spouse - Children How many children do you have?: 0 Do any of your children live nearby?: No - Safety Do you feel safe in your surroundings?: Yes Review of Systems - Review of Systems Hints: Right click = Denies (Slash). Left click = Reports (Kiana) Review of Present Symptoms: Reports: Shortness of Breath with Exertion - has greaty improved since the last stent was done. Previously would be short of breath, legs would hurt and actualy have pain in my knees., Appetite - Normal - only eat once a day., Appetite - Special Diet - 1,000mg sodium diet restriction per Dr. Ricketts, low fat, low cholesterolemia., Sleep - Normal - normally 6-8 hours depending on daily activity etc., Sexual Changes - very limited.. Denies: Shortness of Breath at Rest, Angina, Dizziness/Lightheadedness, Fatigue - no more than normal, Heart Arrhythmia/Irregularities - Pain Is Patient Pain Free?: Yes Pain Location: none Pain Level: 0/10 Risk Factor Assessment - Chief Complaint Chief Complaint: PT is a 45 yr old male of Dr. Liliam piedra presentst o CR today following recent PCI intervention following his NSTEMI . - Vital Signs Temperature: 97.5 F Respiratory Rate: 14 Pulse Ox: 96 Blood Pressure: 111/72 - Pulse Pulse Rate: 68 Pulse Rhythm: Regular - Hypertension How long have you been treated?: aug 2018 Blood Pressure Sitting - Left Arm: 111/72 - Stress Stress: Recent - Blood Cholesterol/Lipids Total Cholesterol (mg/dL) Goal = less than 200 mg/dL: 251 HDL Cholesterol (mg/dL) Goal = less than 40 mg/dL: 26 - Obesity Height: 5 ft 8 in Weight:: 188 lb Weight in Pounds: 188.0 lbs Weight Source: Standing Scale Body Mass Index (BMI): 28.5 Nutritional Referral for Obesity: No - Physical Inactivity Physical Inactivity: Reg Exercise 30 min/day, 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, wood working - Risk Stratification Risk Guidelines: Lowest Risk: Risk Factor for Diabetes, Risk Factor for Obesity, Risk Factor for Hypertension, Risk Factor for Sedentary Lifestyle, Risk Factor for Depression, Moderate Risk: Risk Factor for Dyslipidemia, Highest Risk: Risk Factor for Smoking - Family History Family History: Family History (Last Reviewed 11/25/20 @ 08:43 by Kallie Razo) Mother Heart disease Father Heart disease Motivation - Motivation to Participate On a scale of 1 to 10, how prepared are you to commit to attending program?: 8 What do you see as barriers to successfully being able to complete the program?: none What do you see as the benefits of succesfully completing the program? In other words, what do you hope to get out of participating in the program?: improving energy, life longevity, healthier Are there issues you are dealing with that will interfere with completing the program?: none Do you have a spouse or signficant other, family or friends who will help support you to complete the program?: family friends supportive.
--- NOTE | 2020-12-12 09:59 | PCM.CR.ITP ---
Diagnosis - General Information Admitting Diagnosis: PCI w/coronary stenting Secondary Diagnosis: athersclerotic heart disease without angiona, old OR, presence of coronary stetn, nicotine dependence, hypercholesterolemia, Personal Learning Style:: Audio/Visual, Written Barriers to Learning: Cognitive/Learning Impairment, Cultural/Spiritual, Decreased Motivation, Emotional/Anxiety, Hearing Impairment, Language, Low Literacy, Mental Status, No Barriers, Physical Condition/Sensory Deficit, Vision Impairment Stage of change r/t lifestyle modifications:: Action Gave educational material for:: Treating Heart Disease, Emotions & Heart Disease, Stress Management & Relaxation, Sleep Disorders & Heart Disease, How The Heart Works, What it means to have Heart Disease, How Coronary Artery Disease is Diagnosed, Heart Procedures, What Heart Medications Do, Risk Factors & Modifications, Living an Active Life, Nutrition - Education/Goals Individual Counseling: Initial Assessment: Nicotine/Smoking, Abnormal Cholesterol Levels, High Blood Pressure Cardiac Rehabilitation Goals: 1. Maintain the individual as the primary focus of care. 2. To improve the patient's quality of life. 3. Identification of cardiac risk factors and provide cardiac risk factor management. 4. Enhance the psychosocial status of the patient. 5. Reconditioning enough to allow the patient to resume customary activities. 6. Control symptoms of cardiac disease Personal Goals: Initial Assessment: Quit smoking (participate in smoking cessation - Refer to Smoking Cessation Program adhere to compliance, Improve energy level, Control risk factors (learn risk factor modification) Scale for measuring improvement of personal goals: Enter appropriate number in Comments. 2 = Unchanged. 3 = Slightly Better. 4 = Moderate Improvement. 5 = Met my Goal - Diagnosis & Disease Process Outcomes/Goals: Pt IDs own risk factors & lifestyle modifications by Session 10, Verbalizes symptoms of angina & response by session 3., Pt independently manages Plan/Interventions: Assist Pt to ID & engage in lifestyle modification to reduce CVD risk, Instruct on individual risk factors, Review symptoms of angina & emergency actions, Review secondary diagnosis & identify educational needs. - Safety Referral to Physical Therapy: No Referral to [facility] Case Management: No Fall Risk Assessed:: Yes Assistive Devices:: None Exercise - Initial Assessment - Visit Date of Eval: 12/12/20 Session #:: 0 - Pre-cardiac rehab evaluation Mets: Pre-: >7 METS for 30 minutes by discharge - Physician Prescribed Exercise Modalities: Treadmill, Rower, Airdyne Frequency: 3x/week for 12 weeks [36 sessions] Intensity: 60-80% of age predicted maximum heart rate reserve Current METSs:: 3.5 Target Heart Rate:: 114-149 EKG Type: NSR - Outcomes & Goals Goals:: Verbalizes understanding of THR, RPE & goal METS by session 6, Documents in home exercise log/reports 30 min aerobic 5 day/wk by DC, Demonstrates accurate pulse taking by DC - Intervention & Plan Exercise Program Goals: Instruct on personal THR & RPE, Instruct on MET level & personal MET goal, Show patient to take own pulse /validate performance until accurate, Instruct on home exercise - Physical Activity Home Exercise Physical Activity - Home Exercise: Safe Exercise, Warm-up, Self-monitoring, Cool-Down, Home Exercise > 30 min Daily, Sitting Time <3 hours/daily - Outcomes & Goals Outcomes/Goals: Demonstrates correct Warm-up/exercise Cool-Down (S3) if = 2.5 METs, Verbalizes symptoms of exercise intolerance by Session 3 (S3), Demonstrate safe equipment use (S3) & follows exercise prescrition (6) - Intervention & Plan Plan/Intervention: Instruct warm-up & cool-down if exercising at > 2 METs, Instruct on symptoms of exercise intolerance & actions to take, Instruct & monitor on saf, Assess intial functional capacity & safety risk Nutrition - Initial Assessment - Program Goals Nutrition Program Goals: LDL <100 optimal. 100 - 129 Near optimal. 130 - 159 Borderline High. 160 - 189 High. Total Cholesterol <200 desirable. 200 - 239 Borderline High. >/= 240 High. HDL < 40 Low >/=60 High. Triglycerides <150 desirable. <199 optimal. VlDL 5 - 40. HgbA1C <7%. BMI <25 Patient has diagnosis of Hyperlipidemia (ICD E78)?: Yes - Visit Date of Assessment:: 12/12/20 Session #:: 0 - Pre-cardiac Rehab evaluation - Cholesterol/Lipids Triglycerides (mg/dL): 623 Total Cholesterol (mg/dL): 251 - 07/31/2019 LDL Cholesterol (mg/dL): 0 - TNP HDL Cholesterol (mg/dL): 0 - TNP Determine presence & major risk factors that modify LDL goal: Cigarette smoking, Hypertension or hypertensive medication, Family history of premature CHD in Male < 55 years: female <65 yearsFa, Age men > 45 years; women >/= 55 years Outcomes/Goals: Pt IDs own risk factors & lifestyle modifications by Session 10, Verbalizes symptoms of angina & response by session 3., Pt independently manages Intervention/Plan: Instruct on personal lipid levels & lipid goals/NCEP guidelines, Instruct on cholesterol Referral to dietitian:: Yes - Medical Nutrition Therapy Services - Diabetes (Other Core Measures) Diabetes Type: Not Applicable - Weight Mgt (Other Care) Not Applicable: Yes Height: 5 ft 8 in Weight:: 188 lb BMI: 28.5 Diagnosis Overweight/Obesity BMI> 30% ICD-10 E66: No Diagnosis High BMI/Morbid Obesity BMI> 35% ICD-10 Z68: No Outcomes/Goals: Pt sets, maintains & shows weight loss goal & trend during rehab Intervention/Plan: Instruct on ideal BMI & set weight loss goal w/patient, Assist pt to ID & incorporate diet changes for weight loss by S9, Encourage goal of using 250-300dcal per session for weight loss - Healthy Eating Habits Will attend diet classes:: Yes Outcomes/Goals:: Consume diet rich in vegs,fruits,whole grain/high fiber,fish,lean meat, Limit sat/trans fats,cholesterol & added salts & sugars Intervention/Plan:: Assess current eating habits Nutrition - 30-Day Assessment Nutrition - 60-Day Assessment Nutrition - 90-Day Assessment Nutrition - Final Assessment Medical - Initial Assessment - Visit Date of Eval: 12/12/20 Session #:: 0 - Pre-cardiac Rehab Evaluation - Medication Compliance Preventative Medication(s):: Aspirin, Ticagrelor/P2Y12 inhibitor, Statin/lipid, Beta evelina H/O mental health issues: depression, anxiety, or addiction?: No Doesn?t believe in the benefits of treatment?: No - H/O Medical non-compliance Believes medications are unnecessary or harmful?: No Has a concern about medication side effects?: No Expresses concern over the cost of medications?: No Outcomes/Goals: Verbalizes medications,desired effect & common side effects @ DC, Pt self-reports following medication regimen, Keeps card in wallet w/medications listed by DC Interventions/plans: Instruct on medication effects & side effects, Review medication list w/patient every two weeks, Instruct importance of taking meds as ordered & assist problem solving - Tobacco Use Tobacco Use: Cigarettes Outcomes/Goals: Smoking cessation achieved or maintained by discharge, Identify aids/strategies for achieving smoking cessation by session 6 Interventions/plan: Instruct on effects of smoking & provide smoking cessation resource, Assist pt to set quit date & provide encouragement, Assist pt to develop strategies to achieve/maintain quit date, Assist pt w/nicotine replacement & medication for cessation success - Hypertension Hypertension Diagnosis:: Hypertension ICD-10 I10 Resting Blood Pressure:: 111/72 [place] [employer] Hypertension Guidelines: [place] [employer] Hypertension Guidelines. Normal BP Less than 120/80. Elevated BP 120/80. Hypertension Stage 1: BP 130-139/80-89. Hypertesnion Stage 2: BP 140 or higher/90 or higher. Hypertension Crisis: BP higher than 180/120 Outcomes/Goals: Able to verbalize/achieve optimal blood pressure <130/80, Incorporates diet changes & exercise for blood pressure control by DC Interventions/plan: Instruct on optimal blood pressure, hypertension & medications, Instruct on effects of sodium, alcohol, stress, exercise &hypertension - Tobacco Cessation Referral Smoking Cessation Referral:: Yes Individual Education/Counseling:: Yes - Adhere to compliance Education Schedule Given:: Yes Medical- 30-Day Assessment Medical- 60-Day Assessment Medical- 90-Day Assessment Medical - Final Assessment Psychosocial - Initial Assess - VIsit Date of Eval: 12/12/20 Session #:: 0 - Pre-cardiac Rehab evaluation Not Applicable: Yes History of previous Mental disease:: No - Psychosocial Test Tool Used:: [employer] QOL Cardiac, PHQ-9 Questionnaire phq-9 Severity: Severity. 1-4 Minimal Depression. 5-9 Mild Depression. 10-14 Moderate Depression. 15-19 Moderately Sever Depression. 20-27 Severe Depression. Rule: - Referral to Behavioral Health PS - Interventions: Yes Attend Stress Management Classes, No Referral to Behavioral Health if PHQ-9 score >9:, No Referral to [facility], No Referral to Physician if PHQ-9 if score is 5-9: - Outcomes/Goals: See list Psychosocial Outcomes/Goals:: ID's personal stressors & 2 strategies to manage stress by discharge - Intervention/Plan: See List Interventions/Plan:: Assess stressors,coping strategies & signs of derpression on admission, Instruct/assist pt to develop coping & personal stress Mgt strategies, Instruct patient to recognize signs & symptoms of depression, Instruct patient to recog Psychosocial - 30-Day Assess Psychosocial - 60-Day Assess Psychosocial - 90-Day Assess Psychosocial - Final Assessmen Patient Health Questionnaire Initial Assessment 1. Little interest or pleasure in doing things: Not at all 2. Feeling down, depressed, or hopeless: Not at all 3. Trouble falling or staying asleep, or sleeping too much: Not at all 4. Feeling tired or having little energy: Not at all 5. Poor appetite or overeating: Not at all 6. Feeling bad about yourself -- or that you are a failure or have let yourself or your family down: Not at all 7. Trouble concentrating on things, such as reading the newspaper or watching television: Not at all 8. Moving or speaking so slowly that other people could have noticed. Or the opposite - being so fidgety or restless that you have been moving around a lot more than usual: Not at all 9. Thoughts that you would be better off , or of hurting yourself in some way: Not at all How difficult have these problems made it for you to do your work, take care of things at home, or get along with other people?: Not difficult at all Total Score: 0 YOAV-Q SV Test - Statements CAD is a disease of the arteries in the heart: False Examples of risk factors for heart disease: True Angina is chest pain or discomfort: True The benefits of resistance training include: True Eating more meat and dairy products: False Anti-platelet medications such as aspirin are important: True The only effective way to manage stress: False An exercise warm-up slowly increases heart rate: False Prepared, processed foods usually have high sodium: True Depression is common after a heart attack: I Don't Know The statin medications lower cholesterol: True To control blood pressure, lower the amount of sodium: True If someone gets chest discomfort during walking: False Transfats are partially hydrogenated vegetable oils: True Sleep apnea that is not treated increases the risk: I Don't Know To control cholesterol, one should become a vegetarian: False Someone knows if he/she is exercising at the right level: True Diabetes cannot be prevented with exercise & health eating: True Stress is a large risk for heart attack: True A diet that can help lower blood pressure is rich in: True - Total Score Total Correct Responses: 16 Self-Efficacy Initial Assessment We would like to know how confident you are in doing certain activities. Please select your confidence level for:: Select your confidence level for the following using the scale 1-10 where 1 is not at all confident and 10 is totally confident. Your score is the average of all 6 responses. Fatigue: How confident are you that you can keep the fatigue caused by your disease from interfering with the things you want to do? Select Number: 10 Physical Discomfort or Pain: How confident are you that you can keep the physical discomfort or pain of your disease from interfering with the things you want to do? Select Number: 10 Emotional Distress: How confident are you that you can keep the emotional distress caused by your disease from interfering with the things you want to do? Select Number: 10 Other Symptoms or Health Problems: How confident are you that you can keep other symptoms or health problems from interfering with the things you want to do? Select Number: 10 Different Tasks and Activities: How confident are you that you can do the different tasks and activities needed to manage your health condition so as to reduce your need to see a doctor? Select Number: 10 Medication: How confident are you that you can do things other than just taking medication to reduce how much your illness affects your everyday life? Select Number: 10 Total Score:: 10 Nutrition Survey - Nutrition Survey Initial Have you lost >10 lbs over the past 2 months without trying?: No Are you following a special diet at home for diabetes, low fat, or low salt?: Yes Are you interested in meeting with a dietitian for help understanding your diet?: No Do you eat less than 3 meals a day?: Yes Do you eat fatty meats (salcedo, sausage, ribs, etc), fried foods, desserts, large amounts of salad dressings, margarine, butter, or cheese most days?: No Do you have food allergies? [Enter types in comment field]: No Do you eat in restaurants more than 3 times a week?: No Do you season food with salt, seasoning salt, or garlic salt?: No Do you used canned, boxed, frozen meals, or soups, seasoning packets?: Yes Total Score:: 3
[2020-12-12 10:18] VITALS: BP 111/72; BMI 28.5
[2020-12-12 10:32] VITALS: BP 111/72; PULSE 68; RESP 14; TEMP 36.4; O2SAT 96; BMI 28.5
== END ==
PROVIDERS: PCP Family Medicine; Referring Provider Internal Medicine Cardiovascular Disease; Visit Provider Internal Medicine Cardiovascular Disease
DX: I25.10 Atherosclerotic heart disease of native coronary artery without angina pectoris (principal); E78.00 Pure hypercholesterolemia, unspecified; I95.9 Hypotension, unspecified; F17.210 Nicotine dependence, cigarettes, uncomplicated; I25.2 Old myocardial infarction; Z95.5 Presence of coronary angioplasty implant and graft

== ENCOUNTER 2020-12-23 10:15 | Outpatient (RCR) | payer OTHER, SELFPAY ==
[2020-12-12 10:18] VITALS: BMI 28.5
[2020-12-12 10:32] VITALS: BMI 28.5
== END 2020-12-26 23:59 ==
LOC: CR 10:15
PROVIDERS: PCP Family Medicine; Referring Provider Internal Medicine Cardiovascular Disease; Visit Provider Internal Medicine Cardiovascular Disease
DX: I25.10 Atherosclerotic heart disease of native coronary artery without angina pectoris (principal); Z95.5 Presence of coronary angioplasty implant and graft; I25.2 Old myocardial infarction; F17.210 Nicotine dependence, cigarettes, uncomplicated; E78.00 Pure hypercholesterolemia, unspecified
CPT/HCPCS: 93798

== ENCOUNTER 2021-01-25 10:15 | Outpatient (RCR) | payer OTHER, SELFPAY ==
[2020-12-12 10:18] VITALS: BMI 28.5
[2020-12-12 10:32] VITALS: BMI 28.5
--- NOTE | 2021-01-10 06:31 | CR.ITP_ITS ---
Diagnosis Exercise - 30-day Assessment - Visit Date of Aidan: 01/10/21 Session #:: 10 - MIssed one session due to previous appt conflict. - Physician Prescribed Exercise Modalities: Treadmill, Rower, Airdyne, NuStep Frequency: 3x/week for 12 weeks [36 sessions] Intensity: 60-80% of age predicted maximum heart rate reserve Current METSs:: 5.0 increase from 3.5 Target Heart Rate:: 114-149 Current RPE:: 11 Maximum Excercise HR:: 144 Please Note: his resting heart rates are in the range of 96-107 Resting Blood Pressure: 92/60 Maximum Exercise Blood Pressure: 146/62 EKG Type: Sinus tachy with upsloaping on ST segment denies pain or dyspnea. Dr. fox - Outcomes & Goals Goals:: Verbalizes understanding of THR, RPE & goal METS by session 6, Documents in home exercise log/reports 30 min aerobic 5 day/wk by DC, Demonstrates accurate pulse taking by DC - Intervention & Plan Exercise Program Goals: Instruct on personal THR & RPE, Instruct on MET level & personal MET goal, Show patient to take own pulse /validate performance until accurate, Instruct on home exercise - 30-day Reassessments 30 day Reassessments:: Progressing - Physical Activity Home Exercise Physical Activity - Home Exercise: Safe Exercise, Warm-up, Self-monitoring, Cool-Down, Home Exercise > 30 min Daily, Sitting Time <3 hours/daily - Outcomes & Goals Outcomes/Goals: Demonstrates correct Warm-up/exercise Cool-Down (S3) if = 2.5 METs, Verbalizes symptoms of exercise intolerance by Session 3 (S3), Demonstrate safe equipment use (S3) & follows exercise prescrition (6) - Intervention & Plan Plan/Intervention: Instruct warm-up & cool-down if exercising at > 2 METs, Instruct on symptoms of exercise intolerance & actions to take, Instruct & monitor on saf, Assess intial functional capacity & safety risk - 30-day Reassessments 30 day Reassessments:: Progressing Nutrition - Initial Assessment Nutrition - 30-Day Assessment - Program Goals Nutrition Program Goals: LDL <100 optimal. 100 - 129 Near optimal. 130 - 159 Borderline High. 160 - 189 High. Total Cholesterol <200 desirable. 200 - 239 Borderline High. >/= 240 High. HDL < 40 Low >/=60 High. Triglycerides <150 desirable. <199 optimal. VlDL 5 - 40. HgbA1C <7%. BMI <25 Patient has diagnosis of Hyperlipidemia (ICD E78)?: Yes - Visit Date of Assessment:: 01/10/21 Session #:: 10 - no additional labs since admission - Cholesterol/Lipids Triglycerides (mg/dL): 623 - 07/31/2019 Total Cholesterol (mg/dL): 251 LDL Cholesterol (mg/dL): 0 - TNP HDL Cholesterol (mg/dL): 26 Determine presence & major risk factors that modify LDL goal: Hypertension or hypertensive medication, Low HDL cholesterol <40 mg/dL* - 26, Family history of premature CHD in Male < 55 years: female <65 yearsFa Outcomes/Goals: Pt IDs own risk factors & lifestyle modifications by Session 10, Verbalizes symptoms of angina & response by session 3., Pt independently manages Intervention/Plan: Instruct on personal lipid levels & lipid goals/NCEP guidelines, Instruct on cholesterol Referral to dietitian:: No - Medical Nutrition Therapy declined by patient 30-day Reassessments:: Progressing - Diabetes (Other Core Measures) Diabetes Type: Not Applicable - Weight Mgt (Other Care) Not Applicable: Yes Height: 5 ft 8 in Weight:: 178 lb BMI: 27.0 Diagnosis Overweight/Obesity BMI> 30% ICD-10 E66: No Diagnosis High BMI/Morbid Obesity BMI> 35% ICD-10 Z68: No Outcomes/Goals: Pt sets, maintains & shows weight loss goal & trend during rehab Intervention/Plan: Instruct on ideal BMI & set weight loss goal w/patient, Assist pt to ID & incorporate diet changes for weight loss by S9 30 day Reassessments:: Progressing - Healthy Eating Habits Will attend diet classes:: Yes Outcomes/Goals:: Consume diet rich in vegs,fruits,whole grain/high fiber,fish,lean meat, Limit sat/trans fats,cholesterol & added salts & sugars Intervention/Plan:: Assess current eating habits 30-day Reassessments:: Progressing - Education Gave educational materials for:: Healthy eating Nutrition - 60-Day Assessment Nutrition - 90-Day Assessment Nutrition - Final Assessment Medical - Initial Assessment Medical- 30-Day Assessment - Visit Date of Eval: 01/10/21 Session #:: 10 - Medication Compliance Preventative Medication(s):: Aspirin, Ticagrelor/P2Y12 inhibitor, Statin/lipid H/O mental health issues: depression, anxiety, or addiction?: No Doesn?t believe in the benefits of treatment?: No Believes medications are unnecessary or harmful?: No Has a concern about medication side effects?: No Expresses concern over the cost of medications?: No Outcomes/Goals: Verbalizes medications,desired effect & common side effects @ DC, Pt self-reports following medication regimen, Keeps card in wallet w/medica tions listed by DC Interventions/plans: Instruct on medication effects & side effects, Review medication list w/patient every two weeks, Instruct importance of taking meds as ordered & assist problem solving 30-day Reassessments:: Progressing - Tobacco Use Tobacco Use: Non-smoker How long ago did you quit using tobacco products?: Less than 6 months ago - on Chantix 1 mg. Do you use smokeless tobacco?: No Outcomes/Goals: Smoking cessation achieved or maintained by discharge, Identify aids/strategies for achieving smoking cessation by session 6 Interventions/plan: Instruct on effects of smoking & provide smoking cessation resource, Assist pt to set quit date & provide encouragement, Assist pt to develop strategies to achieve/maintain quit date, Assist pt w/nicotine replacement & medication for cessation success 30-day Reassessments:: Progressing - Hypertension Hypertension Diagnosis:: Hypertension ICD-10 I10 Resting Blood Pressure:: 92/60 [place] [employer] Hypertension Guidelines: [place] [employer] Hypertension Guidelines. Normal BP Less than 120/80. Elevated BP 120/80. Hypertension Stage 1: BP 130-139/80-89. Hypertesnion Stage 2: BP 140 or higher/90 or higher. Hypertension Crisis: BP higher than 180/120 Peak Exercise Blood Pressure:: 146/62 Outcomes/Goals: Able to verbalize/achieve optimal blood pressure <130/80, Incorporates diet changes & exercise for blood pressure control by DC Interventions/plan: Instruct on optimal blood pressure, hypertension & medications, Instruct on effects of sodium, alcohol, stress, exercise &hypertension 30 day Reassessments:: Progressing - Tobacco Cessation Referral Smoking Cessation Referral:: No Individual Education/Counseling:: No Education Schedule Given:: Yes Medical- 60-Day Assessment Medical- 90-Day Assessment Medical - Final Assessment Psychosocial - Initial Assess Psychosocial - 30-Day Assess - VIsit Date of Eval: 01/10/21 Session #:: 10 Not Applicable: Yes History of previous Mental disease:: No - Psychosocial Test Tool Used:: PHQ-9 Questionnaire phq-9 Severity: Severity. 1-4 Minimal Depression. 5-9 Mild Depression. 10-14 Moderate Depression. 15-19 Moderately Sever Depression. 20-27 Severe Depression. Rule: - Referral to Behavioral Health PS - Interventions: Yes Attend Stress Management Classes, No Referral to Behavioral Health if PHQ-9 score >9:, No Referral to [facility], No Referral to Physician if PHQ-9 if score is 5-9: - Outcomes/Goals: See list Psychosocial Outcomes/Goals:: ID's personal stressors & 2 strategies to manage stress by discharge - Intervention/Plan: See List Interventions/Plan:: Assess stressors,coping strategies & signs of derpression on admission, Instruct/assist pt to develop coping & personal stress Mgt strategies, Instruct patient to recognize signs & symptoms of depression, Instruct patient to recog - 30-day Reassessments: 30 day Reassessments:: Progressing Psychosocial - 60-Day Assess Psychosocial - 90-Day Assess Psychosocial - Final Assessmen Patient Health Questionnaire 30-Day Re-eval Assessment 1. Little interest or pleasure in doing things: Not at all 2. Feeling down, depressed, or hopeless: Not at all 3. Trouble falling or staying asleep, or sleeping too much: Not at all 4. Feeling tired or having little energy: Not at all 5. Poor appetite or overeating: Not at all 6. Feeling bad about yourself -- or that you are a failure or have let yourself or your family down: Not at all 7. Trouble concentrating on things, such as reading the newspaper or watching television: Not at all 8. Moving or speaking so slowly that other people could have noticed. Or the opposite - being so fidgety or restless that you have been moving around a lot more than usual: Not at all 9. Thoughts that you would be better off , or of hurting yourself in some way: Not at all How difficult have these problems made it for you to do your work, take care of things at home, or get along with other people?: Not difficult at all Total Score: 0 Self-Efficacy 30-Day Re-eval Assessment We would like to know how confident you are in doing certain activities. Please select your confidence level for:: Select your confidence level for the follow ing using the scale 1-10 where 1 is not at all confident and 10 is totally confident. Your score is the average of all 6 responses. Fatigue: How confident are you that you can keep the fatigue caused by your disease from interfering with the things you want to do? Select Number: 10 Physical Discomfort or Pain: How confident are you that you can keep the physical discomfort or pain of your disease from interfering with the things you want to do? Select Number: 10 Emotional Distress: How confident are you that you can keep the emotional distress caused by your disease from interfering with the things you want to do? Select Number: 10 Other Symptoms or Health Problems: How confident are you that you can keep other symptoms or health problems from interfering with the things you want to do? Select Number: 10 Different Tasks and Activities: How confident are you that you can do the different tasks and activities needed to manage your health condition so as to reduce your need to see a doctor? Select Number: 10 Medication: How confident are you that you can do things other than just taking medication to reduce how much your illness affects your everyday life? Select Number: 10 Total Score:: 10 Nutrition Survey
[2021-01-10 06:44] VITALS: BP 146/62; BP 92/60; BMI 27.0
== END 2021-01-25 23:59 ==
LOC: CR 10:15
PROVIDERS: PCP Family Medicine; Referring Provider Internal Medicine Cardiovascular Disease; Visit Provider Internal Medicine Cardiovascular Disease
DX: I25.10 Atherosclerotic heart disease of native coronary artery without angina pectoris (principal); I25.2 Old myocardial infarction; Z95.5 Presence of coronary angioplasty implant and graft; E78.00 Pure hypercholesterolemia, unspecified; F17.210 Nicotine dependence, cigarettes, uncomplicated
CPT/HCPCS: 93798

== ENCOUNTER 2021-02-24 10:15 | Outpatient (RCR) | payer OTHER, SELFPAY ==
[2021-01-10 06:44] VITALS: BMI 27.0
[2021-01-23 16:00] VITALS: BMI 26.1
[2021-01-26 00:30] VITALS: BP 146/62; BP 92/60
--- NOTE | 2021-02-08 06:58 | PCM.CR.ITP ---
Diagnosis Exercise - 60-day Assessment - Visit Date of Eval: 02/08/21 Session #:: 20 - Patient has missed two scheduled sessions - Physician Prescribed Exercise Modalities: Treadmill, Rower, Airdyne Frequency: 3x/week for 12 weeks [36 sessions] Intensity: 60-80% of age predicted maximum heart rate reserve Current METSs:: 6.5 Target Heart Rate:: 114-149 Current RPE:: 11-13 Maximum Excercise HR:: 141 Resting Blood Pressure: 128/70 Maximum Exercise Blood Pressure: 144/56 EKG Type: NST to sinus tach with slight ST depression, rare PACs - Outcomes & Goals Goals:: Verbalizes understanding of THR, RPE & goal METS by session 6, Documents in home exercise log/reports 30 min aerobic 5 day/wk by DC, Demonstrates accurate pulse taking by DC - Intervention & Plan Exercise Program Goals: Instruct on personal THR & RPE, Instruct on MET level & personal MET goal, Show patient to take own pulse /validate performance until accurate, Instruct on home exercise - 30-day Reassessments 30 day Reassessments:: Progressing - Physical Activity Home Exercise Physical Activity - Home Exercise: Safe Exercise, Warm-up, Self-monitoring, Cool-Down, Home Exercise > 30 min Daily, Sitting Time <3 hours/daily - Outcomes & Goals Outcomes/Goals: Demonstrates correct Warm-up/exercise Cool-Down (S3) if = 2.5 METs, Verbalizes symptoms of exercise intolerance by Session 3 (S3), Demonstrate safe equipment use (S3) & follows exercise prescrition (6) - Intervention & Plan Plan/Intervention: Instruct warm-up & cool-down if exercising at > 2 METs, Instruct on symptoms of exercise intolerance & actions to take, Instruct & monitor on saf, Assess intial functional capacity & safety risk - 30-day Reassessments 30 day Reassessments:: Progressing Nutrition - Initial Assessment Nutrition - 30-Day Assessment Nutrition - 60-Day Assessment - Program Goals Nutrition Program Goals: LDL <100 optimal. 100 - 129 Near optimal. 130 - 159 Borderline High. 160 - 189 High. Total Cholesterol <200 desirable. 200 - 239 Borderline High. >/= 240 High. HDL < 40 Low >/=60 High. Triglycerides <150 desirable. <199 optimal. VlDL 5 - 40. HgbA1C <7%. BMI <25 Patient has diagnosis of Hyperlipidemia (ICD E78)?: Yes - Visit Date of Assessment:: 02/08/21 Session #:: 20 - Cholesterol/Lipids Determine presence & major risk factors that modify LDL goal: Cigarette smoking, Hypertension or hypertensive medication, Family history of premature CHD in Male < 55 years: female <65 yearsFa Outcomes/Goals: Pt IDs own risk factors & lifestyle modifications by Session 10, Verbalizes symptoms of angina & response by session 3., Pt independently manages Intervention/Plan: Instruct on personal lipid levels & lipid goals/NCEP guidelines, Instruct on cholesterol Referral to dietitian:: No - Patient declined services 30-day Reassessments:: Progressing - Diabetes (Other Core Measures) Diabetes Type: Not Applicable - Weight Mgt (Other Care) Not Applicable: Yes Height: 5 ft 8 in - 68 Weight:: 179 lb 8 oz BMI: 27.3 Diagnosis Overweight/Obesity BMI> 30% ICD-10 E66: No Diagnosis High BMI/Morbid Obesity BMI> 35% ICD-10 Z68: No Outcomes/Goals: Pt sets, maintains & shows weight loss goal & trend during rehab Intervention/Plan: Instruct on ideal BMI & set weight loss goal w/patient 30 day Reassessments:: Met - Healthy Eating Habits Will attend diet classes:: Yes Outcomes/Goals:: Consume diet rich in vegs,fruits,whole grain/high fiber,fish,lean meat, Limit sat/trans fats,cholesterol & added salts & sugars Intervention/Plan:: Assess current eating habits 30-day Reassessments:: Met Nutrition - 90-Day Assessment Nutrition - Final Assessment Medical - Initial Assessment Medical- 30-Day Assessment Medical- 60-Day Assessment - Visit Date of Eval: 02/08/21 Session #:: 20 - Medication Compliance Preventative Medication(s):: Aspirin, Ticagrelor/P2Y12 inhibitor, Statin/lipid H/O mental health issues: depression, anxiety, or addiction?: No Doesn?t believe in the benefits of treatment?: No Believes medications are unnecessary or harmful?: No Has a concern about medication side effects?: No Expresses concern over the cost of medications?: No Outcomes/Goals: Verbalizes medications,desired effect & common side effects @ DC, Pt self-reports following medication regimen, Keeps card in wallet w/medications listed by DC Interventions/plans: Instruct on medication effects & side effects, Review medication list w/patient every two weeks, Instruct importance of taking meds as ordered & assist problem solving 30-day Reassessments:: Progressing - Tobacco Use Tobacco Use: Cigarettes How many cigarettes do you smoke per day?: 10 Years Smokin Do you use smokeless tobacco?: No Outcomes/Goals: Smoking cessation achieved or maintained by discharge - Down to 1/2 PPD versus 2 packs, Identify aids/strategies for achieving smoking cessation by session 6 Interventions/plan: Instruct on effects of smoking & provide smoking cessation resource, Assist pt to set quit date & provide encouragement, Assist pt to develop strategies to achieve/maintain quit date, Assist pt w/nicotine replacement & medication for cessation success - Patient using Chantix 30-day Reassessments:: Progressing - Hypertension Hypertension Diagnosis:: Hypertension ICD-10 I10 Resting Blood Pressure:: 128/70 [place] [employer] Hypertension Guidelines: [place] [employer] Hypertension Guidelines. Normal BP Less than 120/80. Elevated BP 120/80. Hypertension Stage 1: BP 130-139/80-89. Hypertesnion Stage 2: BP 140 or higher/90 or higher. Hypertension Crisis: BP higher than 180/120 Peak Exercise Blood Pressure:: 144/56 Outcomes/Goals: Able to verbalize/achieve optimal blood pressure <130/80, Incorporates diet changes & exercise for blood pressure control by DC Interventions/plan: Instruct on optimal blood pressure, hypertension & medications, Instruct on effects of sodium, alcohol, stress, exercise &hypertension 30 day Reassessments:: Progressing - Tobacco Cessation Referral Smoking Cessation Referral:: Yes Individual Education/Counseling:: Yes - Smoking Counseling Education Schedule Given:: Yes Medical- 90-Day Assessment Medical - Final Assessment Psychosocial - Initial Assess Psychosocial - 30-Day Assess Psychosocial - 60-Day Assess - VIsit Date of Eval: 02/08/21 Session #:: 20 Not Applicable: Yes History of previous Mental disease:: No - Psychosocial Test Tool Used:: PHQ-9 Questionnaire phq-9 Severity: Severity. 1-4 Minimal Depression. 5-9 Mild Depression. 10-14 Moderate Depression. 15-19 Moderately Sever Depression. 20-27 Severe Depression. Rule: - Referral to Behavioral Health PS - Interventions: Yes Attend Stress Management Classes, No Referral to Behavioral Health if PHQ-9 score >9:, No Referral to [facility], No Referral to Physician if PHQ-9 if score is 5-9: - Outcomes/Goals: See list Psychosocial Outcomes/Goals:: ID's personal stressors & 2 strategies to manage stress by discharge - Intervention/Plan: See List Interventions/Plan:: Assess stressors,coping strategies & signs of derpression on admission, Instruct/assist pt to develop coping & personal stress Mgt strategies, Instruct patient to recognize signs & symptoms of depression, Instruct patient to recog - 30-day Reassessments: 30 day Reassessments:: Progressing Psychosocial - 90-Day Assess Psychosocial - Final Assessmen Patient Health Questionnaire 60-Day Re-eval Assessment 1. Little interest or pleasure in doing things: Not at all 2. Feeling down, depressed, or hopeless: Not at all 3. Trouble falling or staying asleep, or sleeping too much: Not at all 4. Feeling tired or having little energy: Not at all 5. Poor appetite or overeating: Not at all 6. Feeling bad about yourself -- or that you are a failure or have let yourself or your family down: Not at all 7. Trouble concentrating on things, such as reading the newspaper or watching television: Not at all 8. Moving or speaking so slowly that other people could have noticed. Or the opposite - being so fidgety or restless that you have been moving around a lot more than usual: Not at all 9. Thoughts that you would be better off , or of hurting yourself in some way: Not at all How difficult have these problems made it for you to do your work, take care of things at home, or get along with other people?: Not difficult at all Total Score: 0 Self-Efficacy 60-Day Re-eval Assessment We would like to know how confident you are in doing certain activities. Please select your confidence level for:: Select your confidence level for the following using the scale 1-10 where 1 is not at all confident and 10 is totally confident. Your score is the average of all 6 responses. Fatigue: How confident are you that you can keep the fatigue caused by your disease from interfering with the things you want to do? Select Number: 10 Physical Discomfort or Pain: How confident are you that you can keep the physical discomfort or pain of your disease from interfering with the things you want to do? Select Number: 10 Emotional Distress: How confident are you that you can keep the emotional distress caused by your disease from interfering with the things you want to do? Select Number: 10 Other Symptoms or Health Problems: How confident are you that you can keep other symptoms or health problems from interfering with the things you want to do? Select Number: 10 Different Tasks and Activities: How confident are you that you can do the different tasks and activities needed to manage your health condition so as to reduce your need to see a doctor? Select Number: 10 Medication: How confident are you that you can do things other than just taking medication to reduce how much your illness affects your everyday life? Select Number: 10 Total Score:: 10 Nutrition Survey
[2021-02-08 07:08] VITALS: BP 128/70; BP 144/56; BMI 27.3
== END 2021-02-25 23:59 ==
LOC: CR 10:15
PROVIDERS: PCP Family Medicine; Referring Provider Internal Medicine Cardiovascular Disease; Visit Provider Internal Medicine Cardiovascular Disease
DX: I25.10 Atherosclerotic heart disease of native coronary artery without angina pectoris (principal); I25.2 Old myocardial infarction; Z95.5 Presence of coronary angioplasty implant and graft; F17.210 Nicotine dependence, cigarettes, uncomplicated; E78.00 Pure hypercholesterolemia, unspecified
CPT/HCPCS: 93798

== ENCOUNTER 2021-03-08 10:30 | Outpatient (RCR) | payer OTHER, SELFPAY ==
[2021-01-23 16:00] VITALS: BMI 26.1
[2021-02-08 07:08] VITALS: BMI 27.3
[2021-02-26 00:31] VITALS: BP 128/70; BP 144/56
--- NOTE | 2021-03-10 09:16 | CR.ITP_ITS ---
Diagnosis - General Information Admitting Diagnosis: PCI with coronary stent Exercise - 90-day Assessment - Visit Date of Eval: 03/10/21 Session #:: 33 - Physician Prescribed Exercise Modalities: Treadmill, Rower, Airdyne Frequency: 3x/week for 12 weeks [36 sessions] Intensity: 60-80% of age predicted maximum heart rate reserve Current METSs:: 6.5 Target Heart Rate:: 114-149 Current RPE:: 11 Maximum Excercise HR:: 145 Resting Blood Pressure: 114/68 Maximum Exercise Blood Pressure: 154/62 EKG Type: NSR to sinus tachy with ST depression - Outcomes & Goals Goals:: Verbalizes understanding of THR, RPE & goal METS by session 6, Documents in home exercise log/reports 30 min aerobic 5 day/wk by DC, Demonstrates accurate pulse taking by DC, Other additional outcome/goals: see below - Intervention & Plan Exercise Program Goals: Instruct on personal THR & RPE, Instruct on MET level & personal MET goal, Show patient to take own pulse /validate performance until accurate, Instruct on home exercise, Other additional plan/int - 30-day Reassessments 30 day Reassessments:: Progressing - Physical Activity Home Exercise Physical Activity - Home Exercise: Safe Exercise, Warm-up, Self-monitoring, Cool-Down, Home Exercise > 30 min Daily, Sitting Time <3 hours/daily - Outcomes & Goals Outcomes/Goals: Demonstrates correct Warm-up/exercise Cool-Down (S3) if = 2.5 METs, Verbalizes symptoms of exercise intolerance by Session 3 (S3), Demonstrate safe equipment use (S3) & follows exercise prescrition (6), Other: See below - Intervention & Plan Plan/Intervention: Instruct warm-up & cool-down if exercising at > 2 METs, Instruct on symptoms of exercise intolerance & actions to take, Instruct & monitor on saf, Assess intial functional capacity & safety risk, Other See below - 30-day Reassessments 30 day Reassessments:: Progressing Nutrition - Initial Assessment Nutrition - 30-Day Assessment Nutrition - 60-Day Assessment Nutrition - 90-Day Assessment - Program Goals Nutrition Program Goals: LDL <100 optimal. 100 - 129 Near optimal. 130 - 159 Borderline High. 160 - 189 High. Total Cholesterol <200 desirable. 200 - 239 Borderline High. >/= 240 High. HDL < 40 Low >/=60 High. Triglycerides <150 desirable. <199 optimal. VlDL 5 - 40. HgbA1C <7%. BMI <25 Patient has diagnosis of Hyperlipidemia (ICD E78)?: Yes - Visit Date of Assessment:: 03/10/21 Session #:: 33 - Cholesterol/Lipids Determine presence & major risk factors that modify LDL goal: Cigarette smoking, Hypertension or hypertensive medication, Low HDL cholesterol <40 mg/dL*, Family history of premature CHD in Male < 55 years: female <65 yearsFa, Age men > 45 years; women >/= 55 years Outcomes/Goals: Pt IDs own risk factors & lifestyle modifications by Session 10, Verbalizes symptoms of angina & response by session 3., Pt independently manages, Other Additional Outcomes/Goals: Intervention/Plan: Advocate for lipid panel cholesterol medication if applicable, Instruct on personal lipid levels & lipid goals/NCEP guidelines, Instruct on cholesterol, Other additional plan/int Referral to dietitian:: No - pt declined 30-day Reassessments:: Progressing - Diabetes (Other Core Measures) Diabetes Type: Not Applicable - Weight Mgt (Other Care) Height: 5 ft 8 in Weight:: 80.966 kg BMI: 27.1 Diagnosis Overweight/Obesity BMI> 30% ICD-10 E66: No Diagnosis High BMI/Morbid Obesity BMI> 35% ICD-10 Z68: No Outcomes/Goals: Pt sets, maintains & shows weight loss goal & trend during rehab, Other additional outcomes/goals Intervention/Plan: Instruct on ideal BMI & set weight loss goal w/patient, Assist pt to ID & incorporate diet changes for weight loss by S9, Refer to Structured Weight Loss program as appropriate, Encourage goal of using 250- 300dcal per session for weight loss, Other additional plan/interventions 30 day Reassessments:: Progressing - Healthy Eating Habits Will attend diet classes:: Yes Outcomes/Goals:: Consume diet rich in vegs,fruits,whole grain/high fiber,fish,lean meat, Limit sat/trans fats,cholesterol & added salts & sugars, Other additional outcome/goals: Intervention/Plan:: Assess current eating habits, Other Additional plan/interventions 30-day Reassessments:: Progressing - Education Gave educational materials for:: Signs & symptoms of hypoglycemia, Signs & symptoms of hyperglycemia, Relate diabetes to coronary artery disease, Healthy eating Nutrition - Final Assessment Medical - Initial Assessment Medical- 30-Day Assessment Medical- 60-Day Assessment Medical- 90-Day Assessment - Visit Date of Eval: 03/10/21 Session #:: 33 - Medication Compliance Preventative Medication(s):: Aspirin, Ticagrelor/P2Y12 inhibitor, Statin/lipid H/O mental health issues: depression, anxiety, or addiction?: No Doesn?t believe in the benefits of treatment?: No Believes medications are unnecessary or harmful?: No Has a concern about medication side effects?: No Expresses concern over the cost of medications?: No Outcomes/Goals: Verbalizes medications,desired effect & common side effects @ DC, Pt self-reports following medication regimen, Keeps card in wallet w/medications listed by DC, Other additional outcome/goals: Interventions/plans: Instruct on medication effects & side effects, Review medication list w/patient every two weeks, Instruct importance of taking meds as ordered & assist problem solving, Other additional 30-day Reassessments:: Progressing - Tobacco Use Tobacco Use: Cigarettes - Pt is currently using nicotine gum Do you use smokeless tobacco?: No Outcomes/Goals: Smoking cessation achieved or maintained by discharge, Identify aids/strategies for achieving smoking cessation by session 6, Other additional outcome/goals Interventions/plan: Instruct on effects of smoking & provide smoking cessation resource, Assist pt to set quit date & provide encouragement, Assist pt to develop strategies to achieve/maintain quit date, Assist pt w/nicotine replacement & medication for cessation success, Other additional plan/interventions 30-day Reassessments:: Progressing - Hypertension Hypertension Diagnosis:: Hypertension ICD-10 I10 Resting Blood Pressure:: 114/68 [place] [employer] Hypertension Guidelines: [place] [employer] Hypertension Guidelines. Normal BP Less than 120/80. Elevated BP 120/80. Hypertension Stage 1: BP 130-139/80-89. Hypertesnion Stage 2: BP 140 or higher/90 or higher. Hypertension Crisis: BP higher than 180/120 Peak Exercise Blood Pressure:: 154/62 Outcomes/Goals: Able to verbalize/achieve optimal blood pressure <130/80, Incorporates diet changes & exercise for blood pressure control by DC, Other additional outcomes/goals Interventions/plan: Instruct on optimal blood pressure, hypertension & medications, Instruct on effects of sodium, alcohol, stress, exercise &hypertension, Other additional plan/interventions 30 day Reassessments:: Progressing - Tobacco Cessation Referral Smoking Cessation Referral:: Yes Individual Education/Counseling:: Yes Education Schedule Given:: Yes Medical - Final Assessment Psychosocial - Initial Assess Psychosocial - 30-Day Assess Psychosocial - 60-Day Assess Psychosocial - 90-Day Assess - VIsit Date of Eval: 03/10/21 Session #:: 33 Not Applicable: No - Outcomes/Goals: See list Psychosocial Outcomes/Goals:: ID's personal stressors & 2 strategies to manage stress by discharge, Other Additional outcome/goals: - Intervention/Plan: See List Interventions/Plan:: Assess stressors,coping strategies & signs of derpression on admission, Instruct/assist pt to develop coping & personal stress Mgt strategies, Refer to Behavioral Health if appropriate, Refer to Physician if appropriate, Instruct patient to recognize signs & symptoms of depression, Instruct patient to recog, Other additional plan/intervention - 30-day Reassessments: 30 day Reassessments:: Progressing Psychosocial - Final Assessmen Patient Health Questionnaire 90-Day Re-eval Assessment 1. Little interest or pleasure in doing things: Not at all 2. Feeling down, depressed, or hopeless: Not at all 3. Trouble falling or staying asleep, or sleeping too much: Not at all 4. Feeling tired or having little energy: Not at all 5. Poor appetite or overeating: Not at all 6. Feeling bad about yourself -- or that you are a failure or have let yourself or your family down: Not at all 7. Trouble concentrating on things, such as reading the newspaper or watching television: Not at all 8. Moving or speaking so slowly that other people could have noticed. Or the opposite - being so fidgety or restless that you have been moving around a lot more than usual: Not at all 9. Thoughts that you would be better off , or of hurting yourself in some way: Not at all How difficult have these problems made it for you to do your work, take care of things at home, or get along with other people?: Not difficult at all Total Score: 0 Self-Efficacy 90-Day Re-eval Assessment We would like to know how confident you are in doing certain activities. Please select your confidence level for:: Select your confidence level for the following using the scale 1-10 where 1 is not at all confident and 10 is totally confident. Your score is the average of all 6 responses. Fatigue: How confident are you that you can keep the fatigue caused by your disease from interfering with the things you want to do? Select Number: 10 Physical Discomfort or Pain: How confident are you that you can keep the physical discomfort or pain of your disease from interfering with the things you want to do? Select Number: 10 Emotional Distress: How confident are you that you can keep the emotional distress caused by your disease from interfering with the things you want to do? Select Number: 10 Other Symptoms or Health Problems: How confident are you that you can keep other symptoms or health problems from interfering with the things you want to do? Select Number: 10 Different Tasks and Activities: How confident are you that you can do the different tasks and activities needed to manage your health condition so as to reduce your need to see a doctor? Select Number: 10 Medication: How confident are you that you can do things other than just taking medication to reduce how much your illness affects your everyday life? Select Number: 10 Total Score:: 10 Nutrition Survey
[2021-03-10 09:30] VITALS: BP 114/68; BP 154/62; BMI 27.1
== END 2021-03-28 23:59 ==
LOC: CR 10:30
PROVIDERS: PCP Family Medicine; Referring Provider Internal Medicine Cardiovascular Disease; Visit Provider Internal Medicine Cardiovascular Disease
DX: I25.10 Atherosclerotic heart disease of native coronary artery without angina pectoris (principal); I25.2 Old myocardial infarction; F17.210 Nicotine dependence, cigarettes, uncomplicated; E78.00 Pure hypercholesterolemia, unspecified; Z95.5 Presence of coronary angioplasty implant and graft
CPT/HCPCS: 93798